=== PATIENT | female | born 1985 | race American Indian/Alaskan Native ===

== ENCOUNTER 2017-03-08 13:22 | Inpatient (IN) | payer MEDICAID ==
[2017-03-08 20:27] LABS: Basophils % (Auto) 0.6 % (0.0-1.8); Eosinophils % (Auto) 0.6 % (0.0-4.3); Hematocrit 44.7 % (30.3-42.9); Hemoglobin 14.9 gm/dl (10.1-14.3); Mean Corpuscular HGB Conc 33 % (30-34); Mean Corpuscular Hemoglobin 29 pg (28-32); Mean Corpuscular Volume 86 fl (79-97); Platelet Count 241 K/mm3 (140-440); Red Cell Distribution Width 13.3 % (13.2-15.2); White Blood Count 4.5 K/mm3 (4.5-11.0)
[2017-03-08 20:43] LABS: INR 1.18 (0.87-1.13)
[2017-03-08 20:47] LABS: Anion Gap 21 mmol/L; BUN/Creatinine Ratio 28; Blood Urea Nitrogen 11 mg/dL (7-17); Calcium 9.4 mg/dL (8.4-10.2); Carbon Dioxide 23 mmol/L (22-30); Chloride 102.2 mmol/L (98-107); Glucose 79 mg/dL (65-100); Potassium 5.1 mmol/L (3.6-5.0); Sodium 141 mmol/L (137-145)
--- NOTE | 2017-03-08 22:00 | Emergency Department Report ---
ED General Adult HPI - General Chief complaint: Tube Replacement Stated complaint: DISLARGED GTUBE Time Seen by Provider: 03/08/17 19:21 Source: EMS, old records reviewed (patient had a 20 [place] bumper gastrostomy tube placed on 06/14/2015. History of hiatal hernia) Mode of arrival: Stretcher Limitations: Other - History of Present Illness Initial comments: 32-year-old female with past medical history of cerebral palsy and seizures presents to the hospital with a broken left upper quadrant feeding tube. Patient is nonverbal and cannot follow basic commands. No other history of present illness obtainable at this time. Patient resides at [facility] and attending is Dr. Prudencio Lomax Severity scale (0 -10): 0 - Related Data Home Medications Medication Instructions Recorded Confirmed Last Taken Acetaminophen [Acetaminophen TAB] 650 mg PO BID 02/04/15 06/03/15 02/03/15 Baclofen [Lioresal] 5 mg PO DAILY 02/04/15 06/03/15 02/03/15 Ferrous Sulfate [Ferrous Sulfate 7.5 ml PO TID 02/04/15 06/03/15 02/03/15 Oral Liq 220 Mg/5 Ml] LORazepam [Ativan INJ] 0.5 mg IM Q6H PRN 02/04/15 06/03/15 02/03/15 Multivit-Minerals/Ferrous Fum 5 ml PO DAILY 02/04/15 06/03/15 02/03/15 [Multivitamin Liquid] QUEtiapine [SEROquel] 25 mg PO QAC 02/04/15 06/03/15 02/03/15 levETIRAcetam [Keppra INJ] 15 ml PO BID 02/04/15 06/03/15 02/03/15 medroxyPROGESTERone ACETATE 150 mg IM Q3M 02/04/15 06/03/15 Unknown [Depo-Provera (Contraception)] Dextromethorphan HBr/Quinidine 1 each PO ACHS 06/03/15 06/03/15 Unknown [Nuedexta 20-10 mg Capsule] Docusate Sodium [Diocto ORAL LIQ] 15 ml PO BID 06/03/15 06/03/15 Unknown Mirtazapine [Remeron] 15 mg PO QHS 06/03/15 06/03/15 Unknown Previous Rx's Medication Instructions Recorded Last Taken Type Phenytoin (25 mg/ml) [Dilantin] 50 mg PO Q8HR #1 bottle 06/16/15 Unknown Rx Allergies Allergy/AdvReac Type Severity Reaction Status Date / Time No Known Allergies Allergy Unverified 02/03/15 14:47 ED Review of Systems ROS: Stated complaint: DISLARGED GTUBE Other details as noted in HPI Comment: Unobtainable due to pts medical conditions ED Past Medical Hx - Past Medical History Previous Medical History?: Yes Hx Hypertension: No Hx Congestive Heart Failure: No Hx Diabetes: No Hx Seizures: Yes Hx Asthma: No Hx COPD: No Hx HIV: No Additional medical history: Cerebral Palsy. Scoliosis - Social History Smoking Status: Never Smoker - Medications Home Medications: Home Medications Medication Instructions Recorded Confirmed Last Taken Type Acetaminophen [Acetaminophen TAB] 650 mg PO BID 02/04/15 06/03/15 02/03/15 History Baclofen [Lioresal] 5 mg PO DAILY 02/04/15 06/03/15 02/03/15 History Ferrous Sulfate [Ferrous Sulfate 7.5 ml PO TID 02/04/15 06/03/15 02/03/15 History Oral Liq 220 Mg/5 Ml] LORazepam [Ativan INJ] 0.5 mg IM Q6H PRN 02/04/15 06/03/15 02/03/15 History Multivit-Minerals/Ferrous Fum 5 ml PO DAILY 02/04/15 06/03/15 02/03/15 History [Multivitamin Liquid] QUEtiapine [SEROquel] 25 mg PO QAC 02/04/15 06/03/15 02/03/15 History levETIRAcetam [Keppra INJ] 15 ml PO BID 02/04/15 06/03/15 02/03/15 History medroxyPROGESTERone ACETATE 150 mg IM Q3M 02/04/15 06/03/15 Unknown History [Depo-Provera (Contraception)] Dextromethorphan HBr/Quinidine 1 each PO ACHS 06/03/15 06/03/15 Unknown History [Nuedexta 20-10 mg Capsule] Docusate Sodium [Diocto ORAL LIQ] 15 ml PO BID 06/03/15 06/03/15 Unknown History Mirtazapine [Remeron] 15 mg PO QHS 06/03/15 06/03/15 Unknown History Phenytoin (25 mg/ml) [Dilantin] 50 mg PO Q8HR #1 bottle 06/16/15 Unknown Rx ED Physical Exam - General Limitations: No Limitations - Other Other exam information: General: No limitations, patient is alert in no acute distress Head exam: Atraumatic, normocephalic Eyes exam: Normal appearance ENT: Moist mucous membrane Neck exam: Normal inspection, Respiratory exam: Clear to auscultation bilateral, no wheezes, rales, crackles Cardiovascular: Normal rate and rhythm, normal heart sounds Abdomen: Soft, nondistended, and nontender, with normal bowel sounds, no rebound, or guarding. Left upper quadrant PEG tube with a bumper that is broken at the bumper level. Gastric content drainage noted Extremity: Full range of motion normal inspection no deformity Back: Normal Inspection, full range of motion, no tenderness Neurologic: Alert, tracks with her eyes, nonverbal, contracted upper lower extremities with some antigravity movement Psychiatric: normal affect, normal mood Skin: Warm, dry, intact ED Course Vital Signs 03/08/17 20:14 Temperature 98 F Pulse Rate 84 Respiratory 18 Rate Blood Pressure 103/76 [Left] - Consultations Consultation #1: 03/08/17 22:19 Case d/w Dr Leyva: npo after midnight, will place peg ED Medical Decision Making - Lab Data Result diagrams: 03/08/17 19:54 03/08/17 19:54 Lab Results 03/08/17 03/08/17 03/08/17 Range/Units 19:54 19:54 19:54 WBC 4.5 (4.5-11.0) K/mm3 RBC 5.20 H (3.65-5.03) M/mm3 Hgb 14.9 H (10.1-14.3) gm/dl Hct 44.7 H (30.3-42.9) % MCV 86 (79-97) fl MCH 29 (28-32) pg MCHC 33 (30-34) % RDW 13.3 (13.2-15.2) % Plt Count 241 (140-440) K/mm3 Lymph % (Auto) 39.9 H (13.4-35.0) % [place] % (Auto) 8.2 H (0.0-7.3) % Eos % (Auto) 0.6 (0.0-4.3) % Baso % (Auto) 0.6 (0.0-1.8) % Lymph # 1.8 (1.2-5.4) K/mm3 [place] # 0.4 (0.0-0.8) K/mm3 Eos # 0.0 (0.0-0.4) K/mm3 Baso # 0.0 (0.0-0.1) K/mm3 Seg Neutrophils % 50.7 (40.0-70.0) % Seg Neutrophils # 2.3 (1.8-7.7) K/mm3 PT 15.6 H (12.2-14.9) Sec. INR 1.18 H (0.87-1.13) APTT 33.0 (24.2-36.6) Sec. Sodium 141 (137-145) mmol/L Potassium 5.1 H (3.6-5.0) mmol/L Chloride 102.2 (98-107) mmol/L Carbon Dioxide 23 (22-30) mmol/L Anion Gap 21 mmol/L BUN 11 (7-17) mg/dL Creatinine 0.4 L (0.7-1.2) mg/dL Estimated GFR > 60 ml/min BUN/Creatinine Ratio 28 % Glucose 79 (65-100) mg/dL Calcium 9.4 (8.4-10.2) mg/dL - Medical Decision Making I am unable to replace PEG tube in the ED and patient will need admission to the hospital for GI replacement of PEG tube. Case discussed with Dr. Leyva prior to admission - Differential Diagnosis dislodged PEG tube, dehydration Critical Care Time: No Critical care attestation.: If time is entered above; I have spent that time in minutes in the direct care of this critically ill patient, excluding procedure time. ED Disposition Clinical Impression: PEG tube malfunction, Encounter for PEG (percutaneous endoscopic gastrostomy) Disposition: OP ADMIT IP TO THIS HOSP Is pt being admited?: Yes Condition: Stable Time of Disposition: 22:00 (Dr Castillo/hosp)
[2017-03-08] MEDS ORDERED: TYLENOL PR PRN (23:29)
[2017-03-08] MEDS ORDERED: ZOFRAN IV PRN (23:29)
--- NOTE | 2017-03-08 23:32 | History and Physical Report ---
History of Present Illness Date of examination: 03/08/17 History of present illness: 32 yeasr with cerebral palsy, seizure, Dm was sent to the ER because her PEG has malfunctioned. She is unable to give a history, ROS unobtainable PAST MEDICAL HISTORY: cerebral palsy, seizure, DM PAST SURGICAL HISTORY: unknown FAMILY HISTORY: unknown SOCIAL HISTORY:unknown Medications and Allergies Allergies Allergy/AdvReac Type Severity Reaction Status Date / Time No Known Allergies Allergy Unverified 02/03/15 14:47 Home Medications Medication Instructions Recorded Confirmed Last Taken Type Acetaminophen [Acetaminophen TAB] 650 mg PO BID 02/04/15 06/03/15 02/03/15 History Baclofen [Lioresal] 5 mg PO DAILY 02/04/15 06/03/15 02/03/15 History Ferrous Sulfate [Ferrous Sulfate 7.5 ml PO TID 02/04/15 06/03/15 02/03/15 History Oral Liq 220 Mg/5 Ml] LORazepam [Ativan INJ] 0.5 mg IM Q6H PRN 02/04/15 06/03/15 02/03/15 History Multivit-Minerals/Ferrous Fum 5 ml PO DAILY 02/04/15 06/03/15 02/03/15 History [Multivitamin Liquid] QUEtiapine [SEROquel] 25 mg PO QAC 02/04/15 06/03/15 02/03/15 History levETIRAcetam [Keppra INJ] 15 ml PO BID 02/04/15 06/03/15 02/03/15 History medroxyPROGESTERone ACETATE 150 mg IM Q3M 02/04/15 06/03/15 Unknown History [Depo-Provera (Contraception)] Dextromethorphan HBr/Quinidine 1 each PO ACHS 06/03/15 06/03/15 Unknown History [Nuedexta 20-10 mg Capsule] Docusate Sodium [Diocto ORAL LIQ] 15 ml PO BID 06/03/15 06/03/15 Unknown History Mirtazapine [Remeron] 15 mg PO QHS 06/03/15 06/03/15 Unknown History Phenytoin (25 mg/ml) [Dilantin] 50 mg PO Q8HR #1 bottle 06/16/15 Unknown Rx Exam - Physical Exam Narrative exam: Gen. appearance: Patient lying in bed, no apparent distress HEENT: Normocephalic, atraumatic, pupils equally round and reactive to light, extraocular movement intact, and no sclericterus,. No JVD or thyromegaly or nodule,neck supple, no carotid bruit ,mucous membranes moist, no exudate or erythema Heart: S1, S2, regular rate and rhythm Lungs: Clear to auscultation bilaterally, breathing comfortable Abdomen: Positive bowel sounds,erythema around PEG site, nontender, nondistended, no organomegaly Extremity: contractred, no cyanosis, clubbing Skin: No rash, nodules, warm, dry Neuro: difficult to assess - Constitutional Vitals: Temp Pulse Resp BP Pulse Ox 98 F 85 20 109/78 03/08/17 22:28 03/08/17 22:28 03/08/17 22:28 03/08/17 22:28 Results - Labs CBC & Chem 7: 03/08/17 19:54 03/08/17 19:54 Labs: Abnormal lab results 03/08/17 03/08/17 03/08/17 Range/Units 19:54 19:54 19:54 RBC 5.20 H (3.65-5.03) M/mm3 Hgb 14.9 H (10.1-14.3) gm/dl Hct 44.7 H (30.3-42.9) % Lymph % (Auto) 39.9 H (13.4-35.0) % [place] % (Auto) 8.2 H (0.0-7.3) % PT 15.6 H (12.2-14.9) Sec. INR 1.18 H (0.87-1.13) Potassium 5.1 H (3.6-5.0) mmol/L Creatinine 0.4 L (0.7-1.2) mg/dL - Imaging and Cardiology EKG: image reviewed Assessment and Plan Assessment Dislodged PEG Cellulitis dehydration Seizure DM Plan Admit to medicine Consult GI, start IV fluid, IV rocephin Check fingersticks, DVT prophalaxis Prn ativan for seizure
[2017-03-08] MEDS ORDERED: NACL 0.45% 1000 ML 1,000 ML IV SCH (23:45)
[2017-03-08] MEDS ORDERED: ROCEPHIN/NS 1 GM/50 ML 1 GM/50 ML BAG IV SCH (23:45)
[2017-03-09] MEDS ORDERED: MORPHINE IV ONE (01:49)
[2017-03-09] MEDS ORDERED: D50W (25GM) Vial IV PRN (02:53)
[2017-03-09] MEDS ORDERED: ATIVAN IV PRN (02:53)
[2017-03-09] MEDS ORDERED: ATIVAN IM PRN (02:54)
[2017-03-09] MEDS: ROCEPHIN 1 GM in NACL 0.9% 20 ML IV SCH ×2 (03:00→14:24)
[2017-03-09 06:43] LABS: Basophils % (Auto) 0.3 % (0.0-1.8); Eosinophils % (Auto) 0.2 % (0.0-4.3); Hemoglobin 14.8 gm/dl (10.1-14.3); Mean Corpuscular HGB Conc 33 % (30-34); Mean Corpuscular Hemoglobin 29 pg (28-32); Mean Corpuscular Volume 87 fl (79-97); Platelet Count 254 K/mm3 (140-440); Red Blood Count 5.19 M/mm3 (3.65-5.03); Red Cell Distribution Width 12.9 % (13.2-15.2); White Blood Count 9.3 K/mm3 (4.5-11.0)
[2017-03-09 06:59] LABS: BUN/Creatinine Ratio 26; Blood Urea Nitrogen 13 mg/dL (7-17); Calcium 9.5 mg/dL (8.4-10.2); Carbon Dioxide 22 mmol/L (22-30); Chloride 100.2 mmol/L (98-107); Glucose 80 mg/dL (65-100); Sodium 142 mmol/L (137-145)
[2017-03-09 07:03] LABS: Anion Gap 25 mmol/L
[2017-03-09] MEDS ORDERED: KEPPRA 1,500 MG in NACL 0.9% 100 ML IV SCH (10:00)
[2017-03-09] MEDS ORDERED: TRANSDERM-SCOP TD SCH (10:00)
--- NOTE | 2017-03-09 11:22 | Gastroenterology Consultation ---
History of Present Illness - Reason for Consult Consult date: 03/09/17 Malfunctioning PEG tube Requesting physician: MEGAN ALVAREZ - History of Present Illness The patient was sent from her facility for a malfunctioning PEG tube. It appears she has a chronic PEG (CP patient) but a new one was placed 06/[address] Lee. It was "not working" at the facility, but on exam, it looks like the PEG has been cut about 4cm proximal to the bumper. There was surrounding erythema, and the patient is in pain when the site is touched. No other information obtainable. Past History Past Medical History: other (Cerebral Palsy) Past Surgical History: Other (PEG tubes) Social history: other (Lives in facility). denies: smoking, alcohol abuse Family history: no significant family history Medications and Allergies Allergies Allergy/AdvReac Type Severity Reaction Status Date / Time No Known Allergies Allergy Unverified 02/03/15 14:47 Home Medications Medication Instructions Recorded Confirmed Last Taken Type Acetaminophen [Acetaminophen TAB] 650 mg PO BID 02/04/15 06/03/15 02/03/15 History Baclofen [Lioresal] 5 mg PO DAILY 02/04/15 06/03/15 02/03/15 History Ferrous Sulfate [Ferrous Sulfate 7.5 ml PO TID 02/04/15 06/03/15 02/03/15 History Oral Liq 220 Mg/5 Ml] LORazepam [Ativan INJ] 0.5 mg IM Q6H PRN 02/04/15 06/03/15 02/03/15 History Multivit-Minerals/Ferrous Fum 5 ml PO DAILY 02/04/15 06/03/15 02/03/15 History [Multivitamin Liquid] QUEtiapine [SEROquel] 25 mg PO QAC 02/04/15 06/03/15 02/03/15 History levETIRAcetam [Keppra INJ] 15 ml PO BID 02/04/15 06/03/15 02/03/15 History medroxyPROGESTERone ACETATE 150 mg IM Q3M 02/04/15 06/03/15 Unknown History [Depo-Provera (Contraception)] Dextromethorphan HBr/Quinidine 1 each PO ACHS 06/03/15 06/03/15 Unknown History [Nuedexta 20-10 mg Capsule] Docusate Sodium [Diocto ORAL LIQ] 15 ml PO BID 06/03/15 06/03/15 Unknown History Mirtazapine [Remeron] 15 mg PO QHS 06/03/15 06/03/15 Unknown History Phenytoin (25 mg/ml) [Dilantin] 50 mg PO Q8HR #1 bottle 06/16/15 Unknown Rx Active Meds: Active Medications Acetaminophen (Tylenol) 650 mg [place] Q4H PRN PRN Reason: Pain MILD(1-3)/Fever >100.5/CMGEE Baclofen (Lioresal) 5 mg PO DAILY SINAN Dextrose (D50w (25gm) Vial) 25 gm IV PRN PRN PRN Reason: Hypoglycemia Sodium Chloride (Nacl 0.45% 1000 Ml) 1,000 mls @ 50 mls/hr IV DIRECT SINAN Last Admin: 03/09/17 03:52 Dose: 50 mls/hr Ceftriaxone Sodium 1 gm/ (Sodium Chloride) 20 mls @ 2 mls/min IV Q24HR SINAN Last Admin: 03/09/17 03:00 Dose: 2 mls/min Levetiracetam (Keppra) 1,500 mg PO BID SINAN Lorazepam (Ativan) 1 mg IV Q4H PRN PRN Reason: Seizures Lorazepam (Ativan) 0.5 mg IM Q6H PRN PRN Reason: Anxiety Mirtazapine (Remeron) 15 mg PO QHS SINAN Ondansetron HCl (Zofran) 4 mg IV Q8H PRN PRN Reason: N/V unrelieved by Reglan Quetiapine Fumarate (Seroquel) 25 mg PO QAC SINAN Scopolamine (Transderm-Scop) 1 each TD Q3D SINAN Review of Systems - Review of Systems ROS unobtainable: due to mental status Exam - Constitutional Vital Signs: Temp Pulse Resp BP Pulse Ox 98.5 F 102 H 16 122/80 98 03/09/17 07:42 03/09/17 07:42 03/09/17 07:42 03/09/17 07:42 03/09/17 07:42 General appearance: mild distress - EENT Eyes: PERRL ENT: poor dentition, no thrush - Neck Neck: supple, normal ROM - Respiratory Respiratory effort: normal Respiratory: bilateral: CTA - Cardiovascular Rhythm: regular Heart Sounds: Present: S1 & S2 Extremities: no ischemia, No edema - Gastrointestinal General gastrointestinal: Present: soft, non-tender, non-distended, other (PEG present in the LUQ that had been cut; it was removed with button intact in one pull. A 16Fr replacement balloon-type PEG was placed in the LUQ and the balloon was insufflated to 5ml. There was good aspiration and flush through the major port.) - Integumentary Integumentary: Present: erythema (Suzanne-PEG erythema to about 25cm around the PEG with wound breakdown and oozing but no severe blood) - Musculoskeletal Musculoskeletal: other (Severe deformity/contractures) - Neurologic Neurological: other (Unable to assess but awake and alert) - Labs CBC & Chem 7: 03/09/17 05:42 03/09/17 05:42 Lab Results: Laboratory Results - last 24 hr 03/08/17 03/08/17 03/08/17 19:54 19:54 19:54 WBC 4.5 RBC 5.20 H Hgb 14.9 H Hct 44.7 H MCV 86 MCH 29 MCHC 33 RDW 13.3 Plt Count 241 Lymph % (Auto) 39.9 H [place] % (Auto) 8.2 H Eos % (Auto) 0.6 Baso % (Auto) 0.6 Lymph # 1.8 [place] # 0.4 Eos # 0.0 Baso # 0.0 Seg Neutrophils % 50.7 Seg Neutrophils # 2.3 PT 15.6 H INR 1.18 H APTT 33.0 Sodium 141 Potassium 5.1 H Chloride 102.2 Carbon Dioxide 23 Anion Gap 21 BUN 11 Creatinine 0.4 L Estimated GFR > 60 BUN/Creatinine Ratio 28 Glucose 79 Calcium 9.4 03/09/17 03/09/17 05:42 05:42 WBC 9.3 RBC 5.19 H Hgb 14.8 H Hct 45.0 H MCV 87 MCH 29 MCHC 33 RDW 12.9 L Plt Count 254 Lymph % (Auto) 22.7 [place] % (Auto) 7.3 Eos % (Auto) 0.2 Baso % (Auto) 0.3 Lymph # 2.1 [place] # 0.7 Eos # 0.0 Baso # 0.0 Seg Neutrophils % 69.5 Seg Neutrophils # 6.5 PT INR APTT Sodium 142 Potassium 5.0 Chloride 100.2 Carbon Dioxide 22 Anion Gap 25 BUN 13 Creatinine 0.5 L Estimated GFR > 60 BUN/Creatinine Ratio 26 Glucose 80 Calcium 9.5 Assessment and Plan - Patient Problems (1) Cellulitis Current Visit: Yes Status: Acute Plan to address problem: - Patient afebrile with normal WBC and no fevers; likely superficial cellulitis. - Will get CT scan of abdomen to r/o submucosal abscess given abdominal pain and nonverbal patient. - Wound consult. - Keep skin dry. - Antibiotics of choice per IMS. (2) PEG tube malfunction Current Visit: Yes Status: Acute Plan to address problem: - PEG tube replaced today. - OK to use immediately if CT scan shows no large abscess (see above).
[2017-03-09] MEDS ORDERED: SODIUM BICARBONATE FEEDTUBE PRN (12:08)
[2017-03-09] MEDS ORDERED: PANCREAZE DR 10,500 UNIT FEEDTUBE PRN (12:08)
[2017-03-09] MEDS ORDERED: SIMPLE SYRUP FEEDTUBE PRN ×2 (12:08)
--- NOTE | 2017-03-09 12:27 | XRay Report ---
SUPINE KUB: History: Confirmation of tube placement. A tube overlies the left upper quadrant. It is unclear if this represents a PEG tube or other tube. Please correlate with the patient. The abdominal gas pattern is unremarkable. No masses or organomegaly is identified and there is no gross evidence of free air or fluid. No significant soft tissue calcifications are noted. IMPRESSION: No acute abdominal process.
--- NOTE | 2017-03-09 13:05 | Consultation ---
History of Present Illness - Reason for Consult Consult date: 03/09/17 abdominal wall cellulitis / abscess Requesting physician: MEGAN CRISTINA - History of Present Illness 32 years old female with history of cerebral palsy, diabetes and seizure, admitted on 03/08/17 due to PEG not working per NS report. It appears she has a chronic PEG but a new one was placed 06/[address] Lee. On exam, it looks like the PEG has been cut about 4cm proximal to the bumper per GI med. There was surrounding erythema, and the patient is in pain when the site is touched. In the emergency room, and pressure 98, heart rate 99, blood pressure 109/78. Abd x-ray negative. WBC 4.5. Plat 241. Creat 0.4. Microbiology: none Current Antimicrobials: dicloxacillin ceftraixone Previous Antimicrobials: Past History Past Medical History: other (Cerebral Palsy) Past Surgical History: Other (PEG tubes) Social history: other (Lives in facility). denies: smoking, alcohol abuse Family history: no significant family history Medications and Allergies Allergies Allergy/AdvReac Type Severity Reaction Status Date / Time No Known Allergies Allergy Unverified 02/03/15 14:47 Home Medications Medication Instructions Recorded Confirmed Last Taken Type Acetaminophen [Acetaminophen TAB] 650 mg PO BID 02/04/15 06/03/15 02/03/15 History Baclofen [Lioresal] 5 mg PO DAILY 02/04/15 06/03/15 02/03/15 History Ferrous Sulfate [Ferrous Sulfate 7.5 ml PO TID 02/04/15 06/03/15 02/03/15 History Oral Liq 220 Mg/5 Ml] LORazepam [Ativan INJ] 0.5 mg IM Q6H PRN 02/04/15 06/03/15 02/03/15 History Multivit-Minerals/Ferrous Fum 5 ml PO DAILY 02/04/15 06/03/15 02/03/15 History [Multivitamin Liquid] QUEtiapine [SEROquel] 25 mg PO QAC 02/04/15 06/03/15 02/03/15 History levETIRAcetam [Keppra INJ] 15 ml PO BID 02/04/15 06/03/15 02/03/15 History medroxyPROGESTERone ACETATE 150 mg IM Q3M 02/04/15 06/03/15 Unknown History [Depo-Provera (Contraception)] Dextromethorphan HBr/Quinidine 1 each PO ACHS 06/03/15 06/03/15 Unknown History [Nuedexta 20-10 mg Capsule] Docusate Sodium [Diocto ORAL LIQ] 15 ml PO BID 06/03/15 06/03/15 Unknown History Mirtazapine [Remeron] 15 mg PO QHS 06/03/15 06/03/15 Unknown History Phenytoin (25 mg/ml) [Dilantin] 50 mg PO Q8HR #1 bottle 06/16/15 Unknown Rx Active Meds: Active Medications Acetaminophen (Tylenol) 650 mg [place] Q4H PRN PRN Reason: Pain MILD(1-3)/Fever >100.5/MCGEE Lipase/Protease/Amylase (Pancreaze Dr 10,500 Unit) 1 each FEEDTUBE PRN PRN PRN Reason: For Clogged Feeding Tube Baclofen (Lioresal) 5 mg PO DAILY SINAN Dextrose (D50w (25gm) Vial) 25 gm IV PRN PRN PRN Reason: Hypoglycemia Dicloxacillin Sodium (Dynapen) 500 mg PO Q6HR SINAN Sodium Chloride (Nacl 0.45% 1000 Ml) 1,000 mls @ 50 mls/hr IV DIRECT SINAN Last Admin: 03/09/17 03:52 Dose: 50 mls/hr Ceftriaxone Sodium 1 gm/ (Sodium Chloride) 20 mls @ 2 mls/min IV Q24HR@2200 SINAN Levetiracetam (Keppra) 1,500 mg PO BID SINAN Lorazepam (Ativan) 1 mg IV Q4H PRN PRN Reason: Seizures Lorazepam (Ativan) 0.5 mg IM Q6H PRN PRN Reason: Anxiety Mirtazapine (Remeron) 15 mg PO QHS SINAN Ondansetron HCl (Zofran) 4 mg IV Q8H PRN PRN Reason: N/V unrelieved by Reglan Quetiapine Fumarate (Seroquel) 25 mg PO QAC SINAN Scopolamine (Transderm-Scop) 1 each TD Q3D SINAN Simple Syrup (Simple Syrup) 15 ml FEEDTUBE PRN PRN PRN Reason: Hypoglycemia Simple Syrup (Simple Syrup) 30 ml FEEDTUBE PRN PRN PRN Reason: Hypoglycemia Sodium Bicarbonate (Sodium Bicarbonate) 325 mg FEEDTUBE PRN PRN PRN Reason: For Clogged Feeding Tube Review of Systems ROS unobtainable: due to mental status Physical Examination - Physical Exam Narrative exam: General appearance: Alert in NAD, non verbal Eyes: anicteric sclerae, moist conjunctivae; no lid-lag; PERRLA HENT: Atraumatic; oropharynx clear Neck: Trachea midline; supple, no thyromegaly or lymphadenopathy Lungs: CTA CV: RRR Abdomen: Soft, +PEG site with surrounding erythema, edema and skin sloughing Extremities: contracted legs Skin: Normal temperature, turgor and texture; no rash, ulcers or subcutaneous nodules Psych: non verbal Neuro: non verbal alert contracted legs Lines: No CVL / PICC - Constitutional Vitals: Vital Signs Temp Pulse Resp BP Pulse Ox 98.5 F 102 H 16 122/80 98 03/09/17 07:42 03/09/17 07:42 03/09/17 07:42 03/09/17 07:42 03/09/17 07:42 Temperature -Last 24 Hours Temperature 98.5 F Temperature 98.7 F Temperature 98 F Temperature 98 F Results - Labs CBC & Chem 7: 03/09/17 05:42 03/09/17 05:42 Labs: Abnormal lab results 03/08/17 03/08/17 03/08/17 Range/Units 19:54 19:54 19:54 RBC 5.20 H (3.65-5.03) M/mm3 Hgb 14.9 H (10.1-14.3) gm/dl Hct 44.7 H (30.3-42.9) % RDW (13.2-15.2) % Lymph % (Auto) 39.9 H (13.4-35.0) % [place] % (Auto) 8.2 H (0.0-7.3) % PT 15.6 H (12.2-14.9) Sec. INR 1.18 H (0.87-1.13) Potassium 5.1 H (3.6-5.0) mmol/L Creatinine 0.4 L (0.7-1.2) mg/dL 03/09/17 03/09/17 Range/Units 05:42 05:42 RBC 5.19 H (3.65-5.03) M/mm3 Hgb 14.8 H (10.1-14.3) gm/dl Hct 45.0 H (30.3-42.9) % RDW 12.9 L (13.2-15.2) % Lymph % (Auto) (13.4-35.0) % [place] % (Auto) (0.0-7.3) % PT (12.2-14.9) Sec. INR (0.87-1.13) Potassium (3.6-5.0) mmol/L Creatinine 0.5 L (0.7-1.2) mg/dL Assessment and Plan Assessment: 1) PEG site cellulitis / presumed abscess: 2) Cerebral palsy 3) DM Plan: -stop dicloxacillin / ceftriaxone -start zosyn and vanco -agree with abdominal CT -CRP Thank you Dr Cristina for your consultation, will follow up with you. Rosemary Daniel MD Infectious Diseases Specialist [facility] ([facility] M [phone] O [phone]
--- NOTE | 2017-03-09 13:57 | Progress Note ---
Assessment and Plan Assessment and plan: The patient is 32 year old female with medical history of cerebral palsy and seizures was sent from her facility for a malfunctioning PEG tube. It appears she has a chronic PEG (CP patient) but a new one was placed 06/[address] Lee. It was "not working" at the facility, but on exam, it looks like the PEG has been cut about 4cm proximal to the bumper per GI eval. There was surrounding erythema, and the patient is in pain when the site is touched. No other information obtainable. Attending is Dr. Prudencio Lomax PEG site cellulites / presumed abscess * Appreciate GI replacing tube, KUB unremarkable * ID consult, Zosyn and Vanco started * Await CT contrast. Consent done by two doctors per guardians request Peritoneal Irritation * Pain control * Wound care consult Secretion management * Scopolamine Cerebral palsy * Current therapy DM * Insulin sliding scale Seizure * Continue home meds Abdominal Wound- Present on admission * Wound care consult Hypokalemia * Improved DVT/GI PROPHY Care discussed on ID and GI History Interval history: Patient seen and examined, in no acute distress. Patient is non verbal secondary to Cerebral Palsy, appears in distress with any manipulation of the abdomen. Hospitalist Physical - Physical exam Narrative exam: VITAL SIGNS: Reviewed. GENERAL: The patient appeared contracted, mild distress especially with abdomen manipulation. Vital signs as documented. HEAD: No signs of head trauma. EYES: Pupils are equal. Extraocular motions intact. EARS: Hearing grossly intact. MOUTH: Oropharynx is normal. NECK: No adenopathy, no JVD. CHEST: Chest with clear breath sounds bilaterally. No wheezes, rales, or rhonchi. CARDIAC: Regular rate and rhythm. S1 and S2, without murmurs, gallops, or rubs. VASCULAR: No Edema. Peripheral pulses normal and equal in all extremities. ABDOMEN: Peg tube in place with wound and some skin breakdown. Soft, Tender. No sign of distention. No rebound or guarding, and no masses palpated. Bowel Sounds Hypoactive MUSCULOSKELETAL: Severe deformity and Contracted Extremities. NEUROLOGIC EXAM: Awake but non verbal. PSYCHIATRIC: Mood normal. SKIN: Erythema in the abdomen - Constitutional Vitals: Temp Pulse Resp BP Pulse Ox 98.5 F 102 H 16 122/80 98 03/09/17 07:42 03/09/17 07:42 03/09/17 07:42 03/09/17 07:42 03/09/17 07:42 Results - Labs CBC & Chem 7: 03/09/17 05:42 03/09/17 05:42 Labs: Laboratory Last Values WBC 9.3 K/mm3 (4.5-11.0) 03/09/17 05:42 RBC 5.19 M/mm3 (3.65-5.03) H 03/09/17 05:42 Hgb 14.8 gm/dl (10.1-14.3) H 03/09/17 05:42 Hct 45.0 % (30.3-42.9) H 03/09/17 05:42 MCV 87 fl (79-97) 03/09/17 05:42 MCH 29 pg (28-32) 03/09/17 05:42 MCHC 33 % (30-34) 03/09/17 05:42 RDW 12.9 % (13.2-15.2) L 03/09/17 05:42 Plt Count 254 K/mm3 (140-440) 03/09/17 05:42 Lymph % (Auto) 22.7 % (13.4-35.0) 03/09/17 05:42 [place] % (Auto) 7.3 % (0.0-7.3) 03/09/17 05:42 Eos % (Auto) 0.2 % (0.0-4.3) 03/09/17 05:42 Baso % (Auto) 0.3 % (0.0-1.8) 03/09/17 05:42 Lymph # 2.1 K/mm3 (1.2-5.4) 03/09/17 05:42 [place] # 0.7 K/mm3 (0.0-0.8) 03/09/17 05:42 Eos # 0.0 K/mm3 (0.0-0.4) 03/09/17 05:42 Baso # 0.0 K/mm3 (0.0-0.1) 03/09/17 05:42 Seg Neutrophils % 69.5 % (40.0-70.0) 03/09/17 05:42 Seg Neutrophils # 6.5 K/mm3 (1.8-7.7) 03/09/17 05:42 PT 15.6 Sec. (12.2-14.9) H 03/08/17 19:54 INR 1.18 (0.87-1.13) H 03/08/17 19:54 APTT 33.0 Sec. (24.2-36.6) 03/08/17 19:54 Sodium 142 mmol/L (137-145) 03/09/17 05:42 Potassium 5.0 mmol/L (3.6-5.0) 03/09/17 05:42 Chloride 100.2 mmol/L (98-107) 03/09/17 05:42 Carbon Dioxide 22 mmol/L (22-30) 03/09/17 05:42 Anion Gap 25 mmol/L 03/09/17 05:42 BUN 13 mg/dL (7-17) 03/09/17 05:42 Creatinine 0.5 mg/dL (0.7-1.2) L 03/09/17 05:42 Estimated GFR > 60 ml/min 03/09/17 05:42 BUN/Creatinine Ratio 26 % 03/09/17 05:42 Glucose 80 mg/dL (65-100) 03/09/17 05:42 Calcium 9.5 mg/dL (8.4-10.2) 03/09/17 05:42 - Imaging and Cardiology CT scan - abdomen: pending CT scan - pelvis: pending
[2017-03-09] MEDS ORDERED: VANCOMYCIN PHARMACY TO DOSE IV SCH (14:00)
[2017-03-09] MEDS: KEPPRA PO SCH ×2 (15:01→23:23)
[2017-03-09] MEDS: LIORESAL PO SCH (15:01)
[2017-03-09] MEDS ORDERED: VANCOMYCIN VIAL 1,000 MG in NACL 0.9% 100 ML IV SCH (16:00)
[2017-03-09] MEDS: ZOSYN/NS 4.5GM/100ML 4.5 GM/100 ML VIAL IV SCH ×2 (16:04→23:25)
--- NOTE | 2017-03-09 16:22 | Cat Scan Report ---
FINAL REPORT PROCEDURE: CT ABDOMEN PELVIS W CON TECHNIQUE: Computerized axial tomography of the abdomen and pelvis was performed after the IV injection of iodinated nonionic contrast. HISTORY: ABDOMINAL WALL ABSCESS COMPARISON: Abdomen x-ray dated June 07, 2015 FINDINGS: Mild hypoventilatory changes are seen in the lungs. Streak artifact from patient's arm slightly limits evaluation of the upper abdomen. Normal variant diminished enhancement is seen in the bare area of the liver. Spleen is normal in size with an accessory splenule inferiorly. Gastrostomy tube has its tip in the body of the stomach. Gallbladder and pancreas display no abnormalities. Adrenal glands and abdominal aorta are normal in size. Two small cysts are seen in the superior pole of the left kidney, measuring up to 8 millimeters in greatest dimension. 6 millimeter cyst is seen in the mid right kidney. Bladder is partially distended without wall thickening. It is displaced anteriorly and to the right of midline due to distended rectosigmoid colon. Rectosigmoid colon is dilated to 8.3 cm in diameter with soft fecal material. More mild constipation is seen throughout the remainder of the colon. No fecal impaction is seen. Likely normal appendix is seen. Uterus is displaced to the right of midline due to the distended rectosigmoid colon. Probable 1.5 cm left ovarian cyst is seen. 2.2 cm right ovarian cyst is seen. Moderate arthritic changes are seen in the hips. IMPRESSION: Prominent constipation is seen in the rectosigmoid colon, with more mild constipation throughout the remainder of the colon. Small bilateral ovarian cysts are seen. Benign renal cysts are seen.
[2017-03-09] MEDS ORDERED: REMERON PO SCH (22:00)
[2017-03-09] MEDS ORDERED: ROCEPHIN 1 GM in NACL 0.9% 20 ML IV SCH (22:00)
[2017-03-10] MEDS ORDERED: VANCOMYCIN/NS 1 GM/250 ML 1 GM/250 ML BAG IV SCH (04:00)
[2017-03-10] MEDS: ZOSYN/NS 4.5GM/100ML 4.5 GM/100 ML VIAL IV SCH (06:06)
[2017-03-10 07:49] VITALS: BP 96/40
[2017-03-10] MEDS: LIORESAL PO SCH (09:37)
[2017-03-10] MEDS: KEPPRA PO SCH (09:38)
[2017-03-10] MEDS ORDERED: NACL 0.9% 1000 ML 1,000 ML IV ONE (10:48)
--- NOTE | 2017-03-10 10:55 | Discharge Summary ---
Providers - Providers Date of Admission: 03/08/17 23:29 Attending physician: MEGAN ALVAREZ MD 03/08/17 22:15 Consult to Physician [CONS] Urgent Consulting Provider: YAJAIRA OSCAR Reason For Exam: peg placement Place consult to:: Dr. Oscar Notified:: Answering Service Phone number called:: [phone] Was contact made?: Yes If yes, spoke with:: Dr. Oscar Time called:: 22:14 Comment:: Dr. Jean ( dr) spoke with Dr. Oscar 03/09/17 09:35 Consult to Physician [CONS] Routine Consulting Provider: LIZ BRADFORD Reason For Exam: abdominal wall abscess Place consult to:: dr. rodriguez Notified:: Phone number called:: [phone] Was contact made?: Yes If yes, spoke with:: dr. rodriguez Time called:: 10:17 03/09/17 11:31 Consult to Wound/ET Nurse [CONS] Routine Reason For Exam: wound eval 03/09/17 11:32 Consult to Dietitian/Nutrition [CONS] Routine Physician Instructions: Reason For Exam: Reason for Consult: Write/Manage Tube Feeding Primary care physician: DIOMEDES MARQUEZ Hospitalization Reason for admission: PEG TUBE MALFORMATION Condition: Stable Hospital course: The patient is 32 year old female with medical history of cerebral palsy and seizures was sent from her facility for a malfunctioning PEG tube. It appears she has a chronic PEG (CP patient) but a new one was placed 06/[address] Lee. It was "not working" at the facility, but on exam, it looks like the PEG has been cut about 4cm proximal to the bumper per GI eval. There was surrounding erythema,with surface excoriations concerning for cellulitis with possible abdominal abscess and the patient is in pain when the site is touched. No other information obtainable. Attending is Dr. Diomedes Marquez. Patient was seen by GI and peg tube replaced and checked for placement. CT scan of adomen was obtained to r/o abscess and was negative but showed constipation which was treated. The patients feeding was restarted. she was also seen by ID and started on abx until abscess was ruled out then transitioned to PO on discharge. PEG site Malfunction Peritoneal Irritation Abdominal wall soft tissue cellulitis Cerebral palsy DM with hyperglycemia Seizure Severe Constipation Abdominal WALL Wound- Present on admission Hypokalemia Hypotension Disposition: DC/TX-03 [facility] Time spent for discharge: 35 MINS Core Measure Documentation - Palliative Care Palliative Care/ Comfort Measures: Not Applicable - Core Measures Any of the following diagnoses?: none - VTE Discharge Requirements Deep Vein Thrombosis/Pulmonary Embolism Present on Admission: No Exam - Physical Exam Narrative exam: VITAL SIGNS: Reviewed. GENERAL: The patient appeared contracted, mild distress especially with abdomen manipulation. Vital signs as documented. HEAD: No signs of head trauma. EYES: Pupils are equal. Extraocular motions intact. EARS: Hearing grossly intact. MOUTH: Oropharynx is normal. NECK: No adenopathy, no JVD. CHEST: Chest with clear breath sounds bilaterally. No wheezes, rales, or rhonchi. CARDIAC: Regular rate and rhythm. S1 and S2, without murmurs, gallops, or rubs. VASCULAR: No Edema. Peripheral pulses normal and equal in all extremities. ABDOMEN: Peg tube in place with wound and some skin breakdown. Soft, Tender. No sign of distention. No rebound or guarding, and no masses palpated. Bowel Sounds Hypoactive MUSCULOSKELETAL: Severe deformity and Contracted Extremities. NEUROLOGIC EXAM: Awake but non verbal. PSYCHIATRIC: Mood normal. SKIN: Erythema in the abdomen - Constitutional Vitals: Temp Pulse Resp BP Pulse Ox 98.6 F 75 18 96/40 94 03/10/17 07:45 03/10/17 07:45 03/10/17 07:45 03/10/17 07:45 03/10/17 07:45 Plan Activity: advance as tolerated, fall precautions Diet: per dietitian instruction Wound: per wound nurse instructions Follow up with: DIOMEDES MARQUEZ MD [Primary Care Provider] - 3-5 Days Prescriptions: Clindamycin [Clindamycin CAP] 300 mg PO Q8H 7 Days cap
--- NOTE | 2017-03-10 11:59 | Progress Note ---
Assessment and Plan Assessment: 1) PEG site cellulitis: no abscess seen on CT. CRP=0.1 2) Cerebral palsy 3) DM 4) Constipation Plan: -contine zosyn and vanco -upon discharge will do clindamycin 300 mg po tid x 7 days -treat constipation -wound care Thank you Dr Cristina for your consultation, will follow up with you. Rosemary Daniel MD Infectious Diseases Specialist [facility] ([facility]) M [phone] O [phone] Subjective Date of service: 03/10/17 Principal diagnosis: cellulitis Interval history: Remains non verbal, alert, no fever. Microbiology: none Current Antimicrobials: vanco 03/09 zosyn 03/09 Previous Antimicrobials: dicloxacillin ceftraixone Objective - Exam Narrative Exam: General appearance: Alert in NAD, non verbal Eyes: anicteric sclerae, moist conjunctivae; no lid-lag; PERRLA HENT: Atraumatic; oropharynx clear Neck: Trachea midline; supple, no thyromegaly or lymphadenopathy Lungs: CTA CV: RRR Abdomen: Soft, +PEG site with surrounding erythema, edema and skin sloughing - better Extremities: contracted legs Skin: Normal temperature, turgor and texture; no rash, ulcers or subcutaneous nodules Psych: non verbal Neuro: non verbal alert contracted legs Lines: No CVL / PICC - Constitutional Vitals: Vital Signs Temp Pulse Resp BP Pulse Ox 98.6 F 75 18 96/40 94 03/10/17 07:45 03/10/17 07:45 03/10/17 07:45 03/10/17 07:45 03/10/17 07:45 Temperature -Last 24 Hours Temperature 98.6 F Temperature 98.9 F Temperature 98.5 F - Labs CBC & Chem 7: 03/09/17 05:42 03/09/17 05:42
[2017-03-10 12:20] LABS: Hematocrit 39.8 % (30.3-42.9); Mean Corpuscular HGB Conc 33 % (30-34); Mean Corpuscular Hemoglobin 29 pg (28-32); Mean Corpuscular Volume 89 fl (79-97); Platelet Count 185 K/mm3 (140-440); Red Cell Distribution Width 13.4 % (13.2-15.2); White Blood Count 4.8 K/mm3 (4.5-11.0)
[2017-03-10 12:28] LABS: Anion Gap 21 mmol/L; BUN/Creatinine Ratio 16; Blood Urea Nitrogen 11 mg/dL (7-17); Calcium 8.6 mg/dL (8.4-10.2); Carbon Dioxide 20 mmol/L (22-30); Glucose 75 mg/dL (65-100); Potassium 3.8 mmol/L (3.6-5.0); Sodium 143 mmol/L (137-145)
[2017-03-10] MEDS: ROCEPHIN 1 GM in NACL 0.9% 20 ML IV SCH (13:09)
[2017-03-10] MEDS ORDERED: DYNAPEN PO SCH (18:00)
== END 2017-03-10 13:45 | DRG 393 ==
LOC: ED 13:22 → 3A 23:29
PROVIDERS: ADMIT Internal Medicine; ATTEND Internal Medicine
PROC: 0D20XUZ Change Feeding Device in Upper Intestinal Tract, External Approach (ICD-10-PCS; principal; 2017-03-09)
DX: K94.23 Gastrostomy malfunction (principal); K65.9 Peritonitis, unspecified; E86.0 Dehydration; R56.9 Unspecified convulsions; G80.9 Cerebral palsy, unspecified; K59.00 Constipation, unspecified; E11.65 Type 2 diabetes mellitus with hyperglycemia; I95.9 Hypotension, unspecified; E87.6 Hypokalemia; L03.311 Cellulitis of abdominal wall; K94.22 Gastrostomy infection; Y83.3 Surgical operation with formation of external stoma as the cause of abnormal reaction of the patient, or of later complication, without mention of misadventure at the time of the procedure; Y73.8 Miscellaneous gastroenterology and urology devices associated with adverse incidents, not elsewhere classified; Y92.099 Unspecified place in other non-institutional residence as the place of occurrence of the external cause
CPT/HCPCS: 36415; 74000; 74177; 80048; 82962; 85025; 85027; 85610; 85730; 86140; J0696; J1953; J2270; J2543; J3370; J7030; Q9967

== ENCOUNTER 2017-10-02 03:38 | Emergency (ER) | payer MEDICAID ==
--- NOTE | 2017-10-02 06:12 | Emergency Department Report ---
ED Abdominal Pain HPI - General Chief Complaint: Tube Replacement Stated Complaint: GTUBE REPLACEMENT Time Seen by Provider: 10/02/17 04:20 Source: EMS Mode of arrival: Stretcher Limitations: Language Barrier, Physical Limitation - History of Present Illness Initial Comments: Ms Duenas is a 22 year-old woman with hx of CP, pseudobulbar affect and g-tube dependence who presents with g-tube removal. Noticed about 45 minutes prior to her arrival at the [facility]. Has 18-f g-tube in place. Placed years ago. No other reported issues. MD Complaint: abdominal pain Severity scale (0 -10): 0 - Related Data Home Medications Medication Instructions Recorded Confirmed Last Taken Acetaminophen [Acetaminophen TAB] 650 mg PO BID 02/04/15 06/03/15 02/03/15 Baclofen [Lioresal] 5 mg PO DAILY 02/04/15 06/03/15 02/03/15 Ferrous Sulfate [Ferrous Sulfate 7.5 ml PO TID 02/04/15 06/03/15 02/03/15 Oral Liq 220 Mg/5 Ml] LORazepam [Ativan INJ] 0.5 mg IM Q6H PRN 02/04/15 06/03/15 02/03/15 Multivit-Minerals/Ferrous Fum 5 ml PO DAILY 02/04/15 06/03/15 02/03/15 [Multivitamin Liquid] QUEtiapine [SEROquel] 25 mg PO QAC 02/04/15 06/03/15 02/03/15 levETIRAcetam [Keppra INJ] 15 ml PO BID 02/04/15 06/03/15 02/03/15 medroxyPROGESTERone ACETATE 150 mg IM Q3M 02/04/15 06/03/15 Unknown [Depo-Provera (Contraception)] Dextromethorphan HBr/Quinidine 1 each PO ACHS 06/03/15 06/03/15 Unknown [Nuedexta 20-10 mg Capsule] Docusate Sodium [Diocto ORAL LIQ] 15 ml PO BID 06/03/15 06/03/15 Unknown Mirtazapine [Remeron] 15 mg PO QHS 06/03/15 06/03/15 Unknown Previous Rx's Medication Instructions Recorded Last Taken Type Phenytoin (25 mg/ml) [Dilantin] 50 mg PO Q8HR #1 bottle 06/16/15 Unknown Rx Clindamycin [Clindamycin CAP] 300 mg PO Q8H 7 Days cap 03/10/17 Unknown Rx Allergies Allergy/AdvReac Type Severity Reaction Status Date / Time No Known Allergies Allergy Unverified 02/03/15 14:47 ED Review of Systems ROS: Stated complaint: GTUBE REPLACEMENT Other details as noted in HPI Comment: Unobtainable due to pts medical conditions ED Past Medical Hx - Past Medical History Previous Medical History?: Yes Hx Hypertension: No Hx Congestive Heart Failure: No Hx Diabetes: No Hx Seizures: Yes Hx Psychiatric Treatment: Yes (Depressive Disorder, Mood Disorder) Hx Asthma: No Hx COPD: No Hx HIV: No Additional medical history: Cerebral Palsy, Dysphagia, Pseudobulbar Affect, Abnormal Posture, Gastrostomy. Scoliosis - Social History Smoking Status: Unknown if ever smoked - Medications Home Medications: Home Medications Medication Instructions Recorded Confirmed Last Taken Type Acetaminophen [Acetaminophen TAB] 650 mg PO BID 02/04/15 06/03/15 02/03/15 History Baclofen [Lioresal] 5 mg PO DAILY 02/04/15 06/03/15 02/03/15 History Ferrous Sulfate [Ferrous Sulfate 7.5 ml PO TID 02/04/15 06/03/15 02/03/15 History Oral Liq 220 Mg/5 Ml] LORazepam [Ativan INJ] 0.5 mg IM Q6H PRN 02/04/15 06/03/15 02/03/15 History Multivit-Minerals/Ferrous Fum 5 ml PO DAILY 02/04/15 06/03/15 02/03/15 History [Multivitamin Liquid] QUEtiapine [SEROquel] 25 mg PO QAC 02/04/15 06/03/15 02/03/15 History levETIRAcetam [Keppra INJ] 15 ml PO BID 02/04/15 06/03/15 02/03/15 History medroxyPROGESTERone ACETATE 150 mg IM Q3M 02/04/15 06/03/15 Unknown History [Depo-Provera (Contraception)] Dextromethorphan HBr/Quinidine 1 each PO ACHS 06/03/15 06/03/15 Unknown History [Nuedexta 20-10 mg Capsule] Docusate Sodium [Diocto ORAL LIQ] 15 ml PO BID 06/03/15 06/03/15 Unknown History Mirtazapine [Remeron] 15 mg PO QHS 06/03/15 06/03/15 Unknown History Phenytoin (25 mg/ml) [Dilantin] 50 mg PO Q8HR #1 bottle 06/16/15 Unknown Rx Clindamycin [Clindamycin CAP] 300 mg PO Q8H 7 Days cap 03/10/17 Unknown Rx ED Physical Exam - General Limitations: Language Barrier, Physical Limitation General appearance: in no apparent distress, other (contracted, non-verbal) - Head Head exam: Present: atraumatic, normocephalic - Eye Eye exam: Present: normal appearance. Absent: conjunctival injection, periorbital swelling - ENT ENT exam: Present: normal exam, normal orophraynx, mucous membranes moist - Neck Neck exam: Present: normal inspection. Absent: tenderness - Respiratory Respiratory exam: Present: normal lung sounds bilaterally. Absent: respiratory distress - Cardiovascular Cardiovascular Exam: Present: regular rate, normal rhythm - GI/Abdominal GI/Abdominal exam: Present: soft, other (g-tube site in RUQ slightly swollen, no surrounding erythema). Absent: distended, tenderness, guarding, rebound - Neurological Exam Neurological exam: Present: alert, other (moves all 4 extremities) - Skin Skin exam: Present: warm, dry, intact ED Course Vital Signs 10/02/17 10/02/17 10/02/17 04:01 05:00 05:39 Temperature 97.8 F Pulse Rate 89 88 Respiratory 20 20 20 Rate Blood Pressure 107/79 Blood Pressure 108/79 [Right] O2 Sat by Pulse 99 98 98 Oximetry 10/02/17 08:00 Temperature 98.6 F Pulse Rate 88 Respiratory 18 Rate Blood Pressure Blood Pressure 119/85 [Right] O2 Sat by Pulse 98 Oximetry - Feeding Tube Replacement Reason for Replacement: fell out Initial Tube Inserted: greater than 4 weeks Type of Tube: gastrostomy Use of Tube: medications and feeding Insertion Site Prior to Procedure: clean, swollen Tube Used for Reinsertion: YONI Verification of Placement: KUB, gastrograffin injection, other (aspiration of stomach contents) Tube Secured by: other (balloon inflated ) ED Medical Decision Making - Radiology Data Radiology results: report reviewed - Medical Decision Making Ms Duenas is a 32 year-old woman with hx of CP and g-tube dependence who presents with g-tube removal. Replaced with smaller tube due to g-tube site swelilng. minimal bleeding with re-insertion. Awaiting confirmation with g-tube study. once confirmed in place, dc back to [facility]. Critical care attestation.: If time is entered above; I have spent that time in minutes in the direct care of this critically ill patient, excluding procedure time. ED Disposition Clinical Impression: Attention to G-tube Disposition: DC-01 TO HOME OR SELFCARE Is pt being admited?: No Condition: Stable Instructions: How to Use and Care for Your PEG Tube (ED) Referrals: PRIMARY CARE, [Primary Care Provider] - 3-5 Days
--- NOTE | 2017-10-02 07:44 | XRay Report ---
FINAL REPORT EXAM: XR G-TUBE STUDY HISTORY: g-tube replacement COMPARISONS: 03/09/2017 FINDINGS: AP portable radiographs of the abdomen Speaker Mounter image of the abdomen demonstrates a central abdominal percutaneous enteric tube, which is subsequently filled with contrast that outlines gastric rugal folds and the duodenum and jejunum. No extravasation of positive enteric contrast is demonstrated. IMPRESSION: Percutaneous gastrostomy tube intraluminal location is confirmed.
[2017-10-02 08:18] VITALS: BP 119/85
== END 2017-10-02 14:30 | disposition home or self-care (01) ==
LOC: ED 03:38
DX: Z43.1 Encounter for attention to gastrostomy (principal)
CPT/HCPCS: 43760; 74018; 99283; Q9963

== ENCOUNTER 2020-02-23 01:47 | Emergency (ER) | payer MEDICAID ==
[2020-02-23] MEDS ORDERED: levETIRAcetam 1000 MG/NS 0.75% 1,000 MG/100 ML BAG IV ONE (01:55)
--- NOTE | 2020-02-23 02:37 | Cat Scan Report ---
CT HEAD WITHOUT CONTRAST INDICATION: continuous seizure. TECHNIQUE: All CT scans at this location are performed using CT dose reduction for ALARA by means of automated e xposure control. COMPARISON: 09/18/2019 FINDINGS: HEMORRHAGE: None. EXTRA-AXIAL SPACES: Normal in size and morphology for the patient's age. VENTRICULAR SYSTEM: Normal in size and morphology for the patient's age. BRAIN PARENCHYMA: No acute findings. Cerebellar atrophy is again noted. MIDLINE SHIFT OR HERNIATION: None. ORBITS: Normal as visualized. SOFT TISSUES OF HEAD: Normal. CALVARIUM: Normal. VISUALIZED PARANASAL SINUSES AND MASTOID AIR CELLS: Clear. ADDITIONAL FINDINGS: None. IMPRESSION: 1. There is mild motion artifact. Accounting for this, no acute intracranial abnormality. Signer Name: Erich Gibson MD Signed: 02/23/2020 2:33 AM Workstation Name: [id number]
[2020-02-23 02:44] LABS: Basophils % (Auto) 0.4 % (0.0-1.8); Eosinophils # (Auto) 0.1 K/mm3 (0.0-0.4); Hematocrit 41.2 % (30.3-42.9); Hemoglobin 13.6 gm/dl (10.1-14.3); Lymphocytes # (Auto) 1.9 K/mm3 (1.2-5.4); Lymphocytes % (Auto) 27.1 % (13.4-35.0); Mean Corpuscular HGB Conc 33 % (30-34); Mean Corpuscular Volume 83 fl (79-97); Monocytes # (Auto) 0.8 K/mm3 (0.0-0.8); Monocytes % (Auto) 11.6 % (0.0-7.3); Platelet Count 346 K/mm3 (140-440); Red Blood Count 4.98 M/mm3 (3.65-5.03); Red Cell Distribution Width 14.1 % (13.2-15.2)
[2020-02-23 02:56] LABS: Alanine Aminotransferase 42 units/L (7-56); Albumin 4.4 g/dL (3.9-5); Blood Urea Nitrogen 10 mg/dL (7-17); Hemolysis Index 2
[2020-02-23 02:58] LABS: BUN/Creatinine Ratio 33
[2020-02-23] MEDS ORDERED: SODIUM CHLORIDE 0.9% 1000 ML 1,000 ML IV ONE (03:18)
--- NOTE | 2020-02-23 03:58 | Emergency Department Report ---
ED Seizure HPI - General Chief Complaint: Seizure Stated Complaint: SEIZURES Time Seen by Provider: 02/23/20 01:54 Source: EMS Mode of arrival: Stretcher Limitations: Other - History of Present Illness Initial Comments: Patient is a 35-year-old F [place] female who is currently in a longterm history is cerebral palsy and seizures who is on Keppra has been having seizures off and on for the last 2 days according to paramedics who took report from the longterm. Patient is nonverbal at baseline. Patient has not had any fevers nausea vomiting according to paramedics. Unknown what the patient's baseline he is outside of being nonverbal. - Related Data Home Medications Medication Instructions Recorded Confirmed Last Taken Acetaminophen [Acetaminophen TAB] 650 mg PO BID 02/04/15 03/02/18 02/03/15 Baclofen [Lioresal] 5 mg PO DAILY 02/04/15 03/02/18 02/03/15 Ferrous Sulfate [Ferrous Sulfate 7.5 ml PO TID 02/04/15 03/02/18 02/03/15 Oral Liq 220 Mg/5 Ml] Multivit-Minerals/Ferrous Fum 5 ml PO DAILY 02/04/15 03/02/18 02/03/15 [Multivitamin Liquid] medroxyPROGESTERone ACETATE 150 mg IM Q3M 02/04/15 03/02/18 Unknown [Depo-Provera (Contraception)] Docusate Sodium [Diocto ORAL LIQ] 15 ml PO BID 06/03/15 03/02/18 Unknown Previous Rx's Medication Instructions Recorded Last Taken Type LORazepam [Ativan INJ] 0.5 mg IM Q6H PRN #7 vial 02/20/18 Unknown Rx polyethylene glycoL 3350 [Miralax 17 gm PO BID powd.pack 02/20/18 Unknown Rx 3350] levETIRAcetam [Keppra INJ] 20 ml PO BID #60 solution 03/02/18 Unknown Rx Ciprofloxacin HCl [Ciprofloxacin 500 mg PO Q12HR 10 Days #20 tab 12/22/18 Unknown Rx TAB] Allergies Allergy/AdvReac Type Severity Reaction Status Date / Time No Known Allergies Allergy Unverified 02/03/15 14:47 ED Review of Systems ROS: Stated complaint: SEIZURES Other details as noted in HPI Comment: Unobtainable due to pts medical conditions ED Past Medical Hx - Past Medical History Hx Hypertension: No Hx Congestive Heart Failure: No Hx Diabetes: No Hx Seizures: Yes Hx Psychiatric Treatment: Yes (Depressive Disorder, Mood Disorder) Hx Asthma: No Hx COPD: No Hx HIV: No Additional medical history: Cerebral Palsy, Dysphagia, Pseudobulbar Affect, Abnormal Posture, Gastrostomy. Scoliosis - Social History Smoking Status: Unknown if ever smoked - Medications Home Medications: Home Medications Medication Instructions Recorded Confirmed Last Taken Type Acetaminophen [Acetaminophen TAB] 650 mg PO BID 02/04/15 03/02/18 02/03/15 History Baclofen [Lioresal] 5 mg PO DAILY 02/04/15 03/02/18 02/03/15 History Ferrous Sulfate [Ferrous Sulfate 7.5 ml PO TID 02/04/15 03/02/18 02/03/15 History Oral Liq 220 Mg/5 Ml] Multivit-Minerals/Ferrous Fum 5 ml PO DAILY 02/04/15 03/02/18 02/03/15 History [Multivitamin Liquid] medroxyPROGESTERone ACETATE 150 mg IM Q3M 02/04/15 03/02/18 Unknown History [Depo-Provera (Contraception)] Docusate Sodium [Diocto ORAL LIQ] 15 ml PO BID 06/03/15 03/02/18 Unknown History LORazepam [Ativan INJ] 0.5 mg IM Q6H PRN #7 vial 02/20/18 03/02/18 Unknown Rx polyethylene glycoL 3350 [Miralax 17 gm PO BID powd.pack 02/20/18 03/02/18 Unknown Rx 3350] levETIRAcetam [Keppra INJ] 20 ml PO BID #60 solution 03/02/18 Unknown Rx Ciprofloxacin HCl [Ciprofloxacin 500 mg PO Q12HR 10 Days #20 tab 12/22/18 Unknown Rx TAB] ED Physical Exam - General Limitations: Other General appearance: in no apparent distress, postictal - Head Head exam: Present: atraumatic, normocephalic - ENT ENT exam: Present: mucous membranes moist - Neck Neck exam: Present: normal inspection - Respiratory Respiratory exam: Present: normal lung sounds bilaterally. Absent: respiratory distress, wheezes, rales, rhonchi - Cardiovascular Cardiovascular Exam: Present: normal rhythm, tachycardia. Absent: systolic murmur, diastolic murmur, rubs, gallop - GI/Abdominal GI/Abdominal exam: Present: soft, normal bowel sounds. Absent: distended, tenderness, guarding, rebound - Extremities Exam Extremities exam: Present: normal inspection - Back Exam Back exam: Present: normal inspection - Neurological Exam Neurological exam: Present: alert, oriented X3 - Psychiatric Psychiatric exam: Present: normal affect, normal mood - Skin Skin exam: Present: warm, dry, intact, normal color. Absent: rash ED Course Vital Signs 02/23/20 02/23/20 02/23/20 02:03 02:09 03:01 Temperature 99.2 F Pulse Rate 128 H 131 H Respiratory 15 18 Rate Blood Pressure 138/98 127/93 O2 Sat by Pulse 97 96 Oximetry 02/23/20 04:01 Temperature Pulse Rate 137 H Respiratory 26 H Rate Blood Pressure 127/93 O2 Sat by Pulse 98 Oximetry - Reevaluation(s) Reevaluation #1: 02/23/20 04:56 Patient is no longer postictal and is back at her baseline. Patient does have a history of pseudobulbar affect and is yelling and laughing in the room. She has been loaded with Keppra. Patient was given some IV fluids for tachycardia which is improving. Patient is stable for discharge. ED Medical Decision Making - Lab Data Result diagrams: 02/23/20 02:18 02/23/20 02:18 Lab Results 02/23/20 02/23/20 02/23/20 Range/Units 02:18 02:18 02:18 WBC 7.0 (4.5-11.0) K/mm3 RBC 4.98 (3.65-5.03) M/mm3 Hgb 13.6 (10.1-14.3) gm/dl Hct 41.2 (30.3-42.9) % MCV 83 (79-97) fl MCH 27 L (28-32) pg MCHC 33 (30-34) % RDW 14.1 (13.2-15.2) % Plt Count 346 (140-440) K/mm3 Lymph % (Auto) 27.1 (13.4-35.0) % [place] % (Auto) 11.6 H (0.0-7.3) % Eos % (Auto) 1.0 (0.0-4.3) % Baso % (Auto) 0.4 (0.0-1.8) % Lymph # (Auto) 1.9 (1.2-5.4) K/mm3 [place] # (Auto) 0.8 (0.0-0.8) K/mm3 Eos # (Auto) 0.1 (0.0-0.4) K/mm3 Baso # (Auto) 0.0 (0.0-0.1) K/mm3 Seg Neutrophils % 59.9 (40.0-70.0) % Seg Neutrophils # 4.2 (1.8-7.7) K/mm3 Sodium 141 (137-145) mmol/L Potassium 4.0 (3.6-5.0) mmol/L Chloride 105.1 (98-107) mmol/L Carbon Dioxide 24 (22-30) mmol/L Anion Gap 16 mmol/L BUN 10 (7-17) mg/dL Creatinine 0.3 L (0.6-1.2) mg/dL Estimated GFR > 60 ml/min BUN/Creatinine Ratio 33 % Glucose 114 H (65-100) mg/dL Calcium 10.0 (8.4-10.2) mg/dL Total Bilirubin 0.30 (0.1-1.2) mg/dL AST 26 (5-40) units/L ALT 42 (7-56) units/L Alkaline Phosphatase 105 (35-129) units/L Total Protein 7.9 (6.3-8.2) g/dL Albumin 4.4 (3.9-5) g/dL Albumin/Globulin Ratio 1.3 % HCG, Qual Negative (Negative) - Radiology Data Patient: GIN WHITLOCK MR#: [id number] : 1985 Acct:[id number] Age/Sex: 35 / F ADM Date: 02/23/20 Loc: ED Attending Dr: Ordering Physician: MEGHANA VELEZ MD Date of Service: 02/23/20 Procedure(s): CT head/brain wo con Accession Number(s): [id number] cc: MEGHANA VELEZ MD CT HEAD WITHOUT CONTRAST INDICATION: continuous seizure. TECHNIQUE: All CT scans at this location are performed using CT dose reduction for ALARA by means of automated exposure control. COMPARISON: 09/18/2019 FINDINGS: HEMORRHAGE: None. EXTRA-AXIAL SPACES: Normal in size and morphology for the patient's age. VENTRICULAR SYSTEM: Normal in size and morphology for the patient's age. BRAIN PARENCHYMA: No acute findings. Cerebellar atrophy is again noted. MIDLINE SHIFT OR HERNIATION: None. ORBITS: Normal as visualized. SOFT TISSUES OF HEAD: Normal. CALVARIUM: Normal. VISUALIZED PARANASAL SINUSES AND MASTOID AIR CELLS: Clear. ADDITIONAL FINDINGS: None. IMPRESSION: 1. There is mild motion artifact. Accounting for this, no acute intracranial abnormality. Signer Name: Erich Gibson MD Signed: 02/23/2020 2:33 AM Workstation Name: [id number] Critical care attestation.: If time is entered above; I have spent that time in minutes in the direct care of this critically ill patient, excluding procedure time. ED Disposition Clinical Impression: Cerebral palsy, Seizure disorder Disposition: DC-01 TO HOME OR SELFCARE Is pt being admited?: No Does the pt Need Aspirin: No Condition: Stable Time of Disposition: 04:57
[2020-02-23 04:39] VITALS: BP 127/93
== END 2020-02-23 08:07 | disposition home or self-care (01) ==
LOC: ED 01:47
DX: G40.909 Epilepsy, unspecified, not intractable, without status epilepticus (principal); G80.8 Other cerebral palsy; F32.89 Other specified depressive episodes; F39 Unspecified mood [affective] disorder; Z79.899 Other long term (current) drug therapy
CPT/HCPCS: 36415; 70450; 80053; 84703; 85025; 96361; 96365; 99284; J1953; J7030

== ENCOUNTER 2021-07-06 18:46 | Emergency (ER) | payer MEDICAID ==
[2021-07-06] MEDS ORDERED: levETIRAcetam 1000 MG/NS 0.75% 1,000 MG/100 ML BAG IV ONE (19:02)
--- NOTE | 2021-07-06 19:13 | Emergency Department Report ---
HPI - General Chief Complaint: Seizure Time Seen by Provider: 07/06/21 19:00 - HPI HPI: Room 1 The patient is a 36-year-old female present with a chief complaint of seizures. Patient sent from [facility] after having seizures. EMS was called and the patient had 2 seizures in route and was administered Ativan 2 mg IM prior to arrival ED Past Medical Hx - Past Medical History Hx Seizures: Yes Hx Psychiatric Treatment: Yes (Depressive Disorder, Mood Disorder) Additional medical history: Cerebral Palsy, Dysphagia, Pseudobulbar Affect, Abnormal Posture, Gastrostomy. Scoliosis - Surgical History Past Surgical History?: No - Family History Family history: no significant - Social History Smoking Status: Unknown if ever smoked Substance Use Type: None - Medications Home Medications: Home Medications Medication Instructions Recorded Confirmed Last Taken Type Acetaminophen [Acetaminophen TAB] 650 mg PO BID 02/04/15 03/02/18 02/03/15 History Baclofen [Lioresal] 5 mg PO DAILY 02/04/15 03/02/18 02/03/15 History Ferrous Sulfate [Ferrous Sulfate 7.5 ml PO TID 02/04/15 03/02/18 02/03/15 History Oral Liq 220 Mg/5 Ml] Multivit-Minerals/Ferrous Fum 5 ml PO DAILY 02/04/15 03/02/18 02/03/15 History [Multivitamin Liquid] medroxyPROGESTERone ACETATE 150 mg IM Q3M 02/04/15 03/02/18 Unknown History [Depo-Provera (Contraception)] Docusate Sodium [Diocto ORAL LIQ] 15 ml PO BID 06/03/15 03/02/18 Unknown History LORazepam [Ativan INJ] 0.5 mg IM Q6H PRN #7 vial 02/20/18 03/02/18 Unknown Rx polyethylene glycoL 3350 [Miralax 17 gm PO BID powd.pack 02/20/18 03/02/18 Unknown Rx 3350] levETIRAcetam [Keppra INJ] 20 ml PO BID #60 solution 03/02/18 Unknown Rx Ciprofloxacin HCl [Ciprofloxacin 500 mg PO Q12HR 10 Days #20 tab 12/22/18 Unknown Rx TAB] ED Review of Systems ROS: Stated complaint: SEIZURE Other details as noted in HPI Comment: Unobtainable due to pts medical conditions Physical Exam - Physical Exam Vital Signs: Vital Signs 07/06/21 18:48 Pulse Rate 110 H Blood Pressure 125/81 [Left] O2 Sat by Pulse 97 Oximetry Physical Exam: GENERAL: The patient is well-nourished female lying on stretcher having IV placed by nursing staff HEENT: Normocephalic. Atraumatic. Extraocular motions are intact. Patient has moist mucous membranes. NECK: Supple. Trachea midline CHEST/LUNGS: Clear to auscultation. There is no respiratory distress noted. HEART/CARDIOVASCULAR: Regular. There is no tachycardia. There is no gallop rub or murmur. ABDOMEN: Abdomen is soft, nontender. Patient has normal bowel sounds. There is no abdominal distention. SKIN: There is no rash. There is no edema. There is no diaphoresis. NEURO: The patient is awake and alert. The patient has cerebral palsy and makes eye contact but does not answer questions. MUSCULOSKELETAL: There is no evidence of acute injury. ED Course Vital Signs 07/06/21 18:48 Pulse Rate 110 H Blood Pressure 125/81 [Left] O2 Sat by Pulse 97 Oximetry - Reevaluation(s) Reevaluation #1: 07/06/21 21:33 No further seizure activity in the ED ED Medical Decision Making - Lab Data Result diagrams: 07/06/21 19:01 07/06/21 19:01 Laboratory Tests 07/06/21 07/06/21 07/06/21 19:01 19:01 19:02 WBC 8.6 RBC 5.01 Hgb 13.7 Hct 42.4 MCV 85 MCH 27 L MCHC 32 RDW 13.6 Plt Count 327 Lymph % (Auto) 34.4 [place] % (Auto) 12.8 H Eos % (Auto) 1.1 Baso % (Auto) 0.5 Lymph # (Auto) 3.0 [place] # (Auto) 1.1 H Eos # (Auto) 0.1 Baso # (Auto) 0.0 Seg Neutrophils % 51.2 Seg Neutrophils # 4.4 Sodium 139 Potassium 3.9 Chloride 103.6 Carbon Dioxide 21 L Anion Gap 18 BUN 8 Creatinine 0.5 L Estimated GFR > 60 BUN/Creatinine Ratio 16 Glucose 84 Calcium 9.3 Magnesium 2.10 HCG, Qual 07/06/21 19:16 WBC RBC Hgb Hct MCV MCH MCHC RDW Plt Count Lymph % (Auto) [place] % (Auto) Eos % (Auto) Baso % (Auto) Lymph # (Auto) [place] # (Auto) Eos # (Auto) Baso # (Auto) Seg Neutrophils % Seg Neutrophils # Sodium Potassium Chloride Carbon Dioxide Anion Gap BUN Creatinine Estimated GFR BUN/Creatinine Ratio Glucose Calcium Magnesium HCG, Qual Negative - Differential Diagnosis Seizure Critical care attestation.: If time is entered above; I have spent that time in minutes in the direct care of this critically ill patient, excluding procedure time. ED Disposition Clinical Impression: Seizure Disposition: [address] [facility] Is pt being admited?: No Does the pt Need Aspirin: No Condition: Stable Instructions: Epilepsy, [id number] Additional Instructions: Return to the emergency department should you develop worsening symptoms, inability to tolerate food or liquids, high fever or any other concerns Referrals: PRIMARY CARE, [Primary Care Provider] - 3-5 Days Time of Disposition: 21:34
[2021-07-06 19:54] LABS: Basophils % (Auto) 0.5 % (0.0-1.8); Eosinophils # (Auto) 0.1 K/mm3 (0.0-0.4); Eosinophils % (Auto) 1.1 % (0.0-4.3); Hematocrit 42.4 % (30.3-42.9); Hemoglobin 13.7 gm/dl (10.1-14.3); Lymphocytes % (Auto) 34.4 % (13.4-35.0); Mean Corpuscular HGB Conc 32 % (30-34); Mean Corpuscular Volume 85 fl (79-97); Monocytes # (Auto) 1.1 K/mm3 (0.0-0.8); Monocytes % (Auto) 12.8 % (0.0-7.3); Platelet Count 327 K/mm3 (140-440); Red Blood Count 5.01 M/mm3 (3.65-5.03); Red Cell Distribution Width 13.6 % (13.2-15.2)
[2021-07-06 20:09] LABS: Blood Urea Nitrogen 8 mg/dL (7-17); Calcium 9.3 mg/dL (8.4-10.2); Hemolysis Index 20
[2021-07-06 20:22] LABS: BUN/Creatinine Ratio 16
[2021-07-07 02:14] VITALS: BP 120/73
== END 2021-07-07 02:15 ==
LOC: ED 18:46
DX: R56.9 Unspecified convulsions (principal)
CPT/HCPCS: 36415; 80048; 83735; 84703; 85025; 96374; 99284; J1953

== ENCOUNTER 2021-11-03 02:38 | Inpatient (IN) | payer MEDICAID ==
[2021-11-03] MEDS ORDERED: levETIRAcetam 1000 MG/NS 0.75% 1,000 MG/100 ML BAG IV ONE (03:46)
[2021-11-03] MEDS ORDERED: levETIRAcetam 500 MG/5 ML ORAL LIQD FEEDTUBE ONE ×2 (03:50→07:44)
--- NOTE | 2021-11-03 03:56 | Emergency Department Report ---
HPI - General Chief Complaint: Seizure Time Seen by Provider: 11/03/21 03:44 - HPI HPI: Room 4 Patient is a 36-year-old female present with chief complaint of seizure activity. Patient is a resident in [facility] was reported to have seizure-like activity. Patient has a history of seizures is reportedly on Keppra. Patient has a history of cerebral palsy and is currently at her mental baseline per EMS ED Past Medical Hx - Past Medical History Hx Seizures: Yes Hx Psychiatric Treatment: Yes (Depressive Disorder, Mood Disorder) Additional medical history: Cerebral Palsy, Dysphagia, Pseudobulbar Affect, Abnormal Posture, Gastrostomy. Scoliosis - Surgical History Additional Surgical History: Feeding tube - Family History Family history: no significant - Social History Smoking Status: Never Smoker - Medications Home Medications: Home Medications Medication Instructions Recorded Confirmed Last Taken Type Acetaminophen [Acetaminophen TAB] 650 mg PO BID 02/04/15 03/02/18 02/03/15 History Baclofen [Lioresal] 5 mg PO DAILY 02/04/15 03/02/18 02/03/15 History Ferrous Sulfate [Ferrous Sulfate 7.5 ml PO TID 02/04/15 03/02/18 02/03/15 History Oral Liq 220 Mg/5 Ml] Multivit-Minerals/Ferrous Fum 5 ml PO DAILY 02/04/15 03/02/18 02/03/15 History [Multivitamin Liquid] medroxyPROGESTERone ACETATE 150 mg IM Q3M 02/04/15 03/02/18 Unknown History [Depo-Provera (Contraception)] Docusate Sodium [Diocto ORAL LIQ] 15 ml PO BID 06/03/15 03/02/18 Unknown History LORazepam [Ativan INJ] 0.5 mg IM Q6H PRN #7 vial 02/20/18 03/02/18 Unknown Rx polyethylene glycoL 3350 [Miralax 17 gm PO BID powd.pack 02/20/18 03/02/18 Unknown Rx 3350] levETIRAcetam [Keppra INJ] 20 ml PO BID #60 solution 03/02/18 Unknown Rx Ciprofloxacin HCl [Ciprofloxacin 500 mg PO Q12HR 10 Days #20 tab 12/22/18 Unknown Rx TAB] ED Review of Systems ROS: Stated complaint: SEIZURES Other details as noted in HPI Comment: Unobtainable due to pts medical conditions (Cerebral palsy) Physical Exam - Physical Exam Vital Signs: Vital Signs 11/03/21 11/03/21 03:19 03:20 Temperature 98.8 F Pulse Rate 113 H Respiratory 22 22 Rate Blood Pressure 115/78 [Left] O2 Sat by Pulse 96 96 Oximetry Physical Exam: GENERAL: The patient is well-nourished female lying on stretcher not appearing to be in acute distress. [] HEENT: Normocephalic. Atraumatic. Patient has moist mucous membranes. NECK: Supple. Trachea midline CHEST/LUNGS: Clear to auscultation. There is no respiratory distress noted. HEART/CARDIOVASCULAR: Regular. There is no tachycardia. There is no gallop rub or murmur. ABDOMEN: Abdomen is soft, nontender. Patient has normal bowel sounds. There is no abdominal distention. SKIN: There is no rash. There is no edema. There is no diaphoresis. NEURO: The patient is resting comfortably and at her mental baseline per EMS. MUSCULOSKELETAL:There is no evidence of acute injury. ED Course Vital Signs 11/03/21 11/03/21 03:19 03:20 Temperature 98.8 F Pulse Rate 113 H Respiratory 22 22 Rate Blood Pressure 115/78 [Left] O2 Sat by Pulse 96 96 Oximetry ED Medical Decision Making - Lab Data Result diagrams: 11/03/21 04:09 11/03/21 04:09 - Differential Diagnosis Seizures Critical care attestation.: If time is entered above; I have spent that time in minutes in the direct care of this critically ill patient, excluding procedure time. ED Disposition Clinical Impression: Seizure, Hypokalemia, Cerebral palsy Disposition: 03 LONG TERM FACILITY Is pt being admited?: No Does the pt Need Aspirin: No Condition: Stable Referrals: PRIMARY CARE, [Primary Care Provider] - 3-5 Days Time of Disposition: 05:29
[2021-11-03 04:44] LABS: Basophils % (Auto) 0.5 % (0.0-1.8); Eosinophils % (Auto) 0.5 % (0.0-4.3); Hematocrit 39.9 % (30.3-42.9); Hemoglobin 12.8 gm/dl (10.1-14.3); Lymphocytes # (Auto) 1.9 K/mm3 (1.2-5.4); Lymphocytes % (Auto) 22.6 % (13.4-35.0); Mean Corpuscular HGB Conc 32 % (30-34); Mean Corpuscular Volume 85 fl (79-97); Monocytes # (Auto) 1.1 K/mm3 (0.0-0.8); Monocytes % (Auto) 13.5 % (0.0-7.3); Platelet Count 267 K/mm3 (140-440); Red Blood Count 4.67 M/mm3 (3.65-5.03); Red Cell Distribution Width 15.1 % (13.2-15.2)
[2021-11-03 04:52] LABS: Blood Urea Nitrogen 13 mg/dL (7-17); Calcium 9.4 mg/dL (8.4-10.2); Hemolysis Index 8
[2021-11-03 04:57] LABS: BUN/Creatinine Ratio 26
[2021-11-03] MEDS ORDERED: POTASSIUM CHLORIDE 20 MEQ PACKET FEEDTUBE ONE (05:28)
--- NOTE | 2021-11-03 07:53 | Event Note ---
Date: 11/03/21 Patient continues to have multiple convulsive events. They are now terminated. She is awake, and breathing spontaneously and in no acute respiratory distress. Given multiple convulsive events, we will admit the patient to the medical service for continued supportive care and close monitoring. Chest x-ray unremarkable. Urinalysis pending. Noncontrast CT scan of the brain is pending. EKG is pending. As per review of old chart, patient has cerebral palsy, functional quadriplegia, and is a [facility] [facility] Have evaluated CT scan brain, do not appreciate a bleed. Formal interpretation is pending. Hospital physician, Dr. Wetzel to admit for multiple convulsions and seizures. CHEST 1 VIEW 11/03/2021 8:03 AM INDICATION / CLINICAL INFORMATION: Multiple seizures and convulsive. COMPARISON: 09/18/19 FINDINGS: SUPPORT DEVICES: None. HEART / MEDIASTINUM: No significant abnormality. LUNGS / PLEURA: No significant pulmonary or pleural abnormality. No pneumothorax. ADDITIONAL FINDINGS: No significant additional findings. IMPRESSION: 1. No acute findings. Signer Name: Azam Castaneda MD Signed: 11/03/2021 7:16 AM Workstation Name: [id number] Vital Signs 11/03/21 11/03/21 11/03/21 03:16 03:19 03:20 Temperature 98.8 F Pulse Rate 113 H Respiratory 22 22 Rate Blood Pressure Blood Pressure 115/78 [Left] O2 Sat by Pulse 96 96 96 Oximetry 11/03/21 11/03/21 11/03/21 03:30 03:46 04:00 Temperature Pulse Rate 110 H 101 H 106 H Respiratory 18 16 21 Rate Blood Pressure 115/78 107/60 107/60 Blood Pressure [Left] O2 Sat by Pulse 95 95 96 Oximetry 11/03/21 11/03/21 11/03/21 04:16 04:30 04:46 Temperature Pulse Rate 130 H 102 H 94 H Respiratory 37 H 18 22 Rate Blood Pressure 114/59 134/80 110/78 Blood Pressure [Left] O2 Sat by Pulse 82 L 97 98 Oximetry 11/03/21 11/03/21 11/03/21 05:00 05:16 05:30 Temperature Pulse Rate 104 H 104 H 100 H Respiratory 18 17 19 Rate Blood Pressure 110/78 122/74 122/74 Blood Pressure [Left] O2 Sat by Pulse 96 96 95 Oximetry 11/03/21 11/03/21 05:46 06:00 Temperature Pulse Rate 101 H 100 H Respiratory 17 17 Rate Blood Pressure 119/60 119/60 Blood Pressure [Left] O2 Sat by Pulse 93 96 Oximetry Lab Results 11/03/21 11/03/21 11/03/21 Range/Units 04:09 04:09 04:09 WBC 8.3 (4.5-11.0) K/mm3 RBC 4.67 (3.65-5.03) M/mm3 Hgb 12.8 (10.1-14.3) gm/dl Hct 39.9 (30.3-42.9) % MCV 85 (79-97) fl MCH 27 L (28-32) pg MCHC 32 (30-34) % RDW 15.1 (13.2-15.2) % Plt Count 267 (140-440) K/mm3 Lymph % (Auto) 22.6 (13.4-35.0) % [place] % (Auto) 13.5 H (0.0-7.3) % Eos % (Auto) 0.5 (0.0-4.3) % Baso % (Auto) 0.5 (0.0-1.8) % Lymph # (Auto) 1.9 (1.2-5.4) K/mm3 [place] # (Auto) 1.1 H (0.0-0.8) K/mm3 Eos # (Auto) 0.0 (0.0-0.4) K/mm3 Baso # (Auto) 0.0 (0.0-0.1) K/mm3 Seg Neutrophils % 62.9 (40.0-70.0) % Seg Neutrophils # 5.2 (1.8-7.7) K/mm3 Sodium 144 (137-145) mmol/L Potassium 3.3 L (3.6-5.0) mmol/L Chloride 104.3 (98-107) mmol/L Carbon Dioxide 26 (22-30) mmol/L Anion Gap 17 mmol/L BUN 13 (7-17) mg/dL Creatinine 0.5 L (0.6-1.2) mg/dL Estimated GFR > 60 ml/min BUN/Creatinine Ratio 26 % Glucose 75 (65-100) mg/dL POC Glucose (70-105) mg/dL Calcium 9.4 (8.4-10.2) mg/dL Magnesium 2.30 (1.7-2.3) mg/dL HCG, Qual Negative (Negative) 11/03/21 Range/Units 07:42 WBC (4.5-11.0) K/mm3 RBC (3.65-5.03) M/mm3 Hgb (10.1-14.3) gm/dl Hct (30.3-42.9) % MCV (79-97) fl MCH (28-32) pg MCHC (30-34) % RDW (13.2-15.2) % Plt Count (140-440) K/mm3 Lymph % (Auto) (13.4-35.0) % [place] % (Auto) (0.0-7.3) % Eos % (Auto) (0.0-4.3) % Baso % (Auto) (0.0-1.8) % Lymph # (Auto) (1.2-5.4) K/mm3 [place] # (Auto) (0.0-0.8) K/mm3 Eos # (Auto) (0.0-0.4) K/mm3 Baso # (Auto) (0.0-0.1) K/mm3 Seg Neutrophils % (40.0-70.0) % Seg Neutrophils # (1.8-7.7) K/mm3 Sodium (137-145) mmol/L Potassium (3.6-5.0) mmol/L Chloride (98-107) mmol/L Carbon Dioxide (22-30) mmol/L Anion Gap mmol/L BUN (7-17) mg/dL Creatinine (0.6-1.2) mg/dL Estimated GFR ml/min BUN/Creatinine Ratio % Glucose (65-100) mg/dL POC Glucose 82 (70-105) mg/dL Calcium (8.4-10.2) mg/dL Magnesium (1.7-2.3) mg/dL HCG, Qual (Negative) CT scan brain negative for acute findings. Defer to inpatient team to further manage. Urinalysis pending
--- NOTE | 2021-11-03 08:21 | XRay Report ---
CHEST 1 VIEW 11/03/2021 8:03 AM INDICATION / CLINICAL INFORMATION: Multiple seizures and convulsive. COMPARISON: 09/18/19 FINDINGS: SUPPORT DEVICES: None. HEART / MEDIASTINUM: No significant abnormality. LUNGS / PLEURA: No significant pulmonary or pleural abnormality. No pneumothorax. ADDITIONAL FINDINGS: No significant additional findings. IMPRESSION: 1. No acute findings. Signer Name: Azam Castaneda MD Signed: 11/03/2021 8:16 AM Workstation Name: [email or web address]
[2021-11-03] MEDS ORDERED: MIDAZOLAM 2 MG/2 ML INJ ONE (09:16)
[2021-11-03] MEDS ORDERED: MIDAZOLAM 2 MG/2 ML INJ IV PRN (09:16)
--- NOTE | 2021-11-03 09:17 | Cat Scan Report ---
CT HEAD WITHOUT CONTRAST INDICATION / CLINICAL INFORMATION: Multiple seizures and convulsive. TECHNIQUE: Axial imaging performed from the skull apex through the skull base without the use of cont rast. Sagittal and coronal reformatted images. All CT scans at this location are performed using CT dose reduction for ALARA by means of automated exposure control. COMPARISON: 02/23/2020 FINDINGS: CEREBRAL PARENCHYMA: No acute parenchymal abnormality. Mild chronic ischemic changes in the white mat ter are noted. HEMORRHAGE: None. EXTRA-AXIAL SPACES: Normal in size and morphology for the patient's age. VENTRICULAR SYSTEM: Normal in size and morphology for the patient's age. MIDLINE SHIFT OR HERNIATION: None. CEREBELLUM / BRAINSTEM: Mild volume loss, unchanged. No acute abnormality. CALVARIUM: No significant abnormality. ORBITS: Normal as visualized. PARANASAL SINUSES / MASTOID AIR CELLS: Normal as visualized. SOFT TISSUES of HEAD: No significant abnormality. ADDITIONAL FINDINGS: None. IMPRESSION: No acute intracranial abnormality. Mild chronic ischemic changes in the white matter and mild atrophy as described. No significant change since 02/23/2020. Signer Name: Guevara Tavarez Jr, MD Signed: 11/03/2021 9:13 AM Workstation Name: [id number]
[2021-11-03] MEDS ORDERED: PHENYTOIN 1,000 MG in SODIUM CHLORIDE 0.9% 250ML 250 ML IV ONE (10:00)
[2021-11-03 11:00] LABS: Color,Urine Yellow (Yellow)
[2021-11-03 11:01] LABS: Bilirubin,Urine Negative (Negative); Blood,Urine 3+ (Negative)
--- NOTE | 2021-11-03 12:58 | History and Physical Report ---
History of Present Illness Date of examination: 11/03/21 Date of admission: 11/03/2021 Chief complaint: Seizure disorder History of present illness: 36-year-old female with significant past medical history of seizure disorder and cerebral palsy who at baseline is a functional quadriplegic and nonverbal presents with to the emergency department with a chief complaint of seizures. Patient is [facility] resident and has had previous admissions over the past few years for seizure disorder. Upon my evaluation, patient was noted to have multiple seizures approximately 15 minutes apart with each seizure lasting approximately 2 minutes. Patient has received Keppra IV and IV Dilantin with no relief at present. The patient will be admitted to [facility] for further evaluation Past History Past Medical History: diabetes, seizures, other (History of cerebral palsy) Past Surgical History: No surgical history Social history: no significant social history Family history: no significant family history Medications and Allergies Allergies Allergy/AdvReac Type Severity Reaction Status Date / Time No Known Allergies Allergy Verified 07/06/21 18:48 Home Medications Medication Instructions Recorded Confirmed Last Taken Type Acetaminophen [Acetaminophen TAB] 650 mg PO BID 02/04/15 03/02/18 02/03/15 History Baclofen [Lioresal] 5 mg PO DAILY 02/04/15 03/02/18 02/03/15 History Ferrous Sulfate [Ferrous Sulfate 7.5 ml PO TID 02/04/15 03/02/18 02/03/15 History Oral Liq 220 Mg/5 Ml] Multivit-Minerals/Ferrous Fum 5 ml PO DAILY 02/04/15 03/02/18 02/03/15 History [Multivitamin Liquid] medroxyPROGESTERone ACETATE 150 mg IM Q3M 02/04/15 03/02/18 Unknown History [Depo-Provera (Contraception)] Docusate Sodium [Diocto ORAL LIQ] 15 ml PO BID 06/03/15 03/02/18 Unknown History LORazepam [Ativan INJ] 0.5 mg IM Q6H PRN #7 vial 02/20/18 03/02/18 Unknown Rx polyethylene glycoL 3350 [Miralax 17 gm PO BID powd.pack 02/20/18 03/02/18 Unknown Rx 3350] levETIRAcetam [Keppra INJ] 20 ml PO BID #60 solution 03/02/18 Unknown Rx Ciprofloxacin HCl [Ciprofloxacin 500 mg PO Q12HR 10 Days #20 tab 12/22/18 Unknown Rx TAB] Active Meds: Active Medications Midazolam HCl (Midazolam 2 Mg/2 Ml Inj) 2 mg IV Q6HR PRN PRN Reason: Seizures Review of Systems ROS unobtainable: due to mental status Exam - Constitutional Vitals: Temp Pulse Resp BP Pulse Ox 98.8 F 115 H 17 111/75 96 11/03/21 03:19 11/03/21 12:16 11/03/21 12:16 11/03/21 12:16 11/03/21 12:16 General appearance: Present: mild distress, well-nourished - EENT Eyes: Present: PERRL ENT: hearing intact, clear oral mucosa - Neck Neck: Present: supple, normal ROM - Respiratory Respiratory effort: normal Respiratory: bilateral: diminished - Cardiovascular Heart Sounds: Present: S1 & S2. Absent: rub, click - Extremities Extremities: pulses symmetrical, No edema Peripheral Pulses: within normal limits - Abdominal General gastrointestinal: Present: soft, non-tender, non-distended, normal bowel sounds Female genitourinary: Present: normal - Integumentary Integumentary: Present: clear, warm, dry - Musculoskeletal Musculoskeletal: gait normal, strength equal bilaterally - Psychiatric Psychiatric: appropriate mood/affect, intact judgment & insight - Neurologic Neurologic: other (Functional quadriplegic, nonverbal, does not follow command) Results - Labs CBC & Chem 7: 11/03/21 04:09 11/03/21 04:09 Labs: Laboratory Last Values WBC 8.3 K/mm3 (4.5-11.0) 11/03/21 04:09 RBC 4.67 M/mm3 (3.65-5.03) 11/03/21 04:09 Hgb 12.8 gm/dl (10.1-14.3) 11/03/21 04:09 Hct 39.9 % (30.3-42.9) 11/03/21 04:09 MCV 85 fl (79-97) 11/03/21 04:09 MCH 27 pg (28-32) L 11/03/21 04:09 MCHC 32 % (30-34) 11/03/21 04:09 RDW 15.1 % (13.2-15.2) 11/03/21 04:09 Plt Count 267 K/mm3 (140-440) 11/03/21 04:09 Lymph % (Auto) 22.6 % (13.4-35.0) 11/03/21 04:09 Irion % (Auto) 13.5 % (0.0-7.3) H 11/03/21 04:09 Eos % (Auto) 0.5 % (0.0-4.3) 11/03/21 04:09 Baso % (Auto) 0.5 % (0.0-1.8) 11/03/21 04:09 Lymph # (Auto) 1.9 K/mm3 (1.2-5.4) 11/03/21 04:09 Irion # (Auto) 1.1 K/mm3 (0.0-0.8) H 11/03/21 04:09 Eos # (Auto) 0.0 K/mm3 (0.0-0.4) 11/03/21 04:09 Baso # (Auto) 0.0 K/mm3 (0.0-0.1) 11/03/21 04:09 Seg Neutrophils % 62.9 % (40.0-70.0) 11/03/21 04:09 Seg Neutrophils # 5.2 K/mm3 (1.8-7.7) 11/03/21 04:09 Sodium 144 mmol/L (137-145) 11/03/21 04:09 Potassium 3.3 mmol/L (3.6-5.0) L 11/03/21 04:09 Chloride 104.3 mmol/L (98-107) 11/03/21 04:09 Carbon Dioxide 26 mmol/L (22-30) 11/03/21 04:09 Anion Gap 17 mmol/L 11/03/21 04:09 BUN 13 mg/dL (7-17) 11/03/21 04:09 Creatinine 0.5 mg/dL (0.6-1.2) L 11/03/21 04:09 Estimated GFR > 60 ml/min 11/03/21 04:09 BUN/Creatinine Ratio 26 % 11/03/21 04:09 Glucose 75 mg/dL (65-100) 11/03/21 04:09 POC Glucose 82 mg/dL (70-105) 11/03/21 07:42 Calcium 9.4 mg/dL (8.4-10.2) 11/03/21 04:09 Magnesium 2.30 mg/dL (1.7-2.3) 11/03/21 04:09 Total Creatine Kinase 152 units/L (30-135) H 11/03/21 08:04 HCG, Qual Negative (Negative) 11/03/21 04:09 Urine Color Yellow (Yellow) 11/03/21 10:25 Urine Turbidity Clear (Clear) 11/03/21 10:25 Urine pH 6.0 (5.0-7.0) 11/03/21 10:25 Ur Specific [place] 1.015 (1.003-1.030) 11/03/21 10:25 Urine Protein 100 mg/dl mg/dL (Negative) 11/03/21 10:25 Urine Glucose (UA) Negative mg/dL (Negative) 11/03/21 10:25 Urine Ketones 1+ mg/dL (Negative) 11/03/21 10:25 Urine Blood 3+ (Negative) 11/03/21 10:25 Urine Nitrite Negative (Negative) 11/03/21 10:25 Urine Bilirubin Negative (Negative) 11/03/21 10:25 Urine Urobilinogen 0.0 mg/dL (<2.0) 11/03/21 10:25 Ur Leukocyte Esterase 1+ (Negative) 11/03/21 10:25 Assessment and Plan Assessment and plan: 36-year-old female with significant past medical history of seizure disorder and cerebral palsy who at baseline is a functional quadriplegic and nonverbal presents with to the emergency department with a chief complaint of seizures. Patient is [facility] resident and has had previous admissions over the past few years for seizure disorder. Upon my evaluation, patient was noted to have multiple seizures approximately 15 minutes apart with each seizure lasting approximately 2 minutes. Patient has received Keppra IV and IV Dilantin with no relief at present. The patient will be admitted to IM for further evaluation Status epilepticus/seizure disorder Diabetes mellitus type 2 Cerebral palsy Functional quadriplegic Oropharyngeal dysphagia 11/03/2021. Patient will be admitted to IMCU for closer monitoring. Patient has received Keppra IV and IV Dilantin without relief at this time. I consulted teleneurology with Dr. Balderas who recommended adding Vimpat. We will continue with Ativan for breakthrough seizures. Patient's baseline is functional quadriplegic and nonverbal. However, additionally she may have concomitant postictal state as well. Consult neurology with Dr. Paz. If seizures do not mary, patient may need to be transferred to tertiary facility for continuous EE G monitoring. We will order spot EEG for now. Continue seizure precautions. No infectious etiology at present. Urinalysis negative and chest x-ray negative. I do not suspect noncompliance given that the patient is a resident of a shelter and I do believe she is getting medications properly. Home medication is Keppra 1000 mg in the morning and 500 mg in the evening. Continue TF for nutrition, consult dietitian.
[2021-11-03] MEDS ORDERED: MORPHINE 4 MG/1 ML INJ IV PRN (13:03)
[2021-11-03] MEDS ORDERED: DEXTROSE 50% IN WATER (25GM) 50 ML SYRINGE IV PRN (13:03)
[2021-11-03] MEDS ORDERED: oxyCODONE /ACETAMINOPHEN 5-325MG TAB PO PRN (13:03)
[2021-11-03] MEDS ORDERED: ONDANSETRON 4 MG/2 ML INJ IV PRN (13:03)
[2021-11-03] MEDS ORDERED: ACETAMINOPHEN 325 MG TAB PO PRN ×2 (13:03)
[2021-11-03] MEDS ORDERED: LORazepam 2 MG/ML VIAL IM PRN ×2 (13:10→22:22)
[2021-11-03] MEDS ORDERED: LORazepam 2 MG/ML VIAL IV PRN (13:14)
--- NOTE | 2021-11-03 13:20 | Consultation ---
History of Present Illness Consult date: 11/03/21 History of present illness: [facility] Consult Note # Demographics Consult Type: General Neurology Patient Location: Emergency Room First Name: Richard Last Name: Henrique Date of : 1985 Age: 36 Gender: Female Facility: [facility] Time of Initial Page ( Time): 11/03/2021, 12:41 Time of Return Call ( Time): 11/03/2021, 12:42 # HPI Chief Complaint: seizure History: Per ER Physician, history of cerebral palsy with functional delay & epilepsy. Limited baseline mental status per ER Physician report. Received Keppra 3g & Phenytoin 1g in ER. Question about titrating AED & whether she needed continuous EEG monitoring. Currently on baclofen 10mg per G-tube, Keppra solution 10ml in AM & 5ml qHS per G-tube (100mg/ml). Hospital Physician unsure if patient has VNS or outside Neurologist/ Epileptologist. # Scores NIHSS Total: 0 Modified Aiden Scale (mRS) pre-stroke: [5] = Severe disability... bedridden... Modified Aiden Scale total: 5 # Exam SBP: 111 DBP: 75 Mental Status: lethargic Non-verbal or interactive - reportedly at baseline. Did not move arms or legs spontaneously on observation. Additional Neurologic Exam: PLEASE DISREGARD NIHSS score - entered in error Evaluation limited due to observational assessment. There was no telepresenter available at bedside. In-person exam may be helpful for more subtle signs that cannot be detected via telemedicine. # Data Time Head CT personally read by me ( Time): 11/03/2021, 12:[address]: no bleed per radiologist read # Assessment Impression: Seizure # Plan Labs: ABG Ammonia B12 CBC comprehensive metabolic panel ESR hemoglobin A1c lipid panel thiamine troponin TSH urine drug screen ua Infectious work-up; Keppra level Imaging: (urgency: routine): MRI Brain with AND without contrast If possible, brain MRI with seizure protocol (but would defer & manage clinically if patient not able to tolerate) Diagnostic Test: EEG Would check routine study to rule out status currently given limited clinical exam - continuous EEG does not appear to be indicated currently given history of epilepsy & frequent seizures Medication: Consider adding lacosamide 50mg BID solution DVT Prophylaxis: SCD chemical DVT prophylaxis Other: telemetry monitoring seizure precautions I have discussed my recommendations with the referring provider Additional Recommendations: Epileptologist/ Neurologist consultation as outpatient for further evaluation & management (i.e., VNS placement if not already completed) # Logistics Telemedicine: Interactive 2 way audio and visual telecommunication technology was utilized during this visit Past History Past Medical History: diabetes, seizures, other (History of cerebral palsy) Past Surgical History: No surgical history Social history: no significant social history Family history: no significant family history Medications and Allergies Allergies Allergy/AdvReac Type Severity Reaction Status Date / Time No Known Allergies Allergy Verified 07/06/21 18:48 Home Medications Medication Instructions Recorded Confirmed Last Taken Type Acetaminophen [Acetaminophen TAB] 650 mg PO BID 02/04/15 03/02/18 02/03/15 History Baclofen [Lioresal] 5 mg PO DAILY 02/04/15 03/02/18 02/03/15 History Ferrous Sulfate [Ferrous Sulfate 7.5 ml PO TID 02/04/15 03/02/18 02/03/15 History Oral Liq 220 Mg/5 Ml] Multivit-Minerals/Ferrous Fum 5 ml PO DAILY 02/04/15 03/02/18 02/03/15 History [Multivitamin Liquid] medroxyPROGESTERone ACETATE 150 mg IM Q3M 02/04/15 03/02/18 Unknown History [Depo-Provera (Contraception)] Docusate Sodium [Diocto ORAL LIQ] 15 ml PO BID 06/03/15 03/02/18 Unknown History LORazepam [Ativan INJ] 0.5 mg IM Q6H PRN #7 vial 02/20/18 03/02/18 Unknown Rx polyethylene glycoL 3350 [Miralax 17 gm PO BID powd.pack 02/20/18 03/02/18 Unknown Rx 3350] levETIRAcetam [Keppra INJ] 20 ml PO BID #60 solution 03/02/18 Unknown Rx Ciprofloxacin HCl [Ciprofloxacin 500 mg PO Q12HR 10 Days #20 tab 12/22/18 Unknown Rx TAB] Active Meds: Active Medications Acetaminophen (Acetaminophen 325 Mg Tab) 650 mg PO Q4H PRN PRN Reason: Pain MILD(1-3)/Fever >100.5/MCGEE Acetaminophen (Acetaminophen 325 Mg Tab) 650 mg PO BID [facility] Baclofen (Baclofen 10 Mg Tab) 5 mg PO DAILY [facility] Dextrose (Dextrose 50% In Water (25gm) 50 Ml Syringe) 50 ml IV Q30MIN PRN; Protocol PRN Reason: Hypoglycemia Sodium Chloride (Nacl 0.9% 1000 Ml) 1,000 mls @ 75 mls/hr IV DIRECT [facility] Lacosamide (Lacosamide 50 Mg Tab) 50 mg FEEDTUBE Q12HR [facility] Lorazepam (Lorazepam 2 Mg/Ml Vial) 0.5 mg IM Q6H PRN PRN Reason: Anxiety Lorazepam (Lorazepam 2 Mg/Ml Vial) 1 mg IV Q4H PRN PRN Reason: Seizures Medroxyprogesterone Acetate (Medroxyprogesterone Acetate 150 Mg/Ml Syringe) 150 mg IM Q3M [facility] Midazolam HCl (Midazolam 2 Mg/2 Ml Inj) 2 mg IV Q6HR PRN PRN Reason: Seizures Miscellaneous Medication (Docusate Sodium [Diocto Oral Liq]) 15 ml PO BID [facility] Miscellaneous Medication (Ferrous Sulfate [Ferrous Sulfate Oral Liq 220 Mg/5 Ml]) 7.5 ml PO TID [facility] Miscellaneous Medication (Levetiracetam [Keppra Inj]) 20 ml PO BID [facility] Morphine Sulfate (Morphine 4 Mg/1 Ml Inj) 1 mg IV Q4H PRN PRN Reason: Pain , Severe (7-10) Ondansetron HCl (Ondansetron 4 Mg/2 Ml Inj) 4 mg IV Q8H PRN PRN Reason: Nausea And Vomiting Oxycodone/Acetaminophen (Oxycodone /Acetaminophen 5-325mg Tab) 1 tab PO Q6H PRN PRN Reason: Pain, Moderate (4-6) Polyethylene Glycol (Polyethylene Glycol 3350 17 Gm Powder) 17 gm PO BID [facility] Sodium Chloride (Sodium Chloride 0.9% 10 Ml Flush Syringe) 10 ml IV BID [facility] Sodium Chloride (Sodium Chloride 0.9% 10 Ml Flush Syringe) 10 ml IV PRN PRN PRN Reason: LINE FLUSH Sodium Chloride (Sodium Chloride 0.9% 10 Ml Flush Syringe) 10 ml IV BID [facility] Sodium Chloride (Sodium Chloride 0.9% 10 Ml Flush Syringe) 10 ml IV PRN PRN PRN Reason: LINE FLUSH Physical Examination - Vital Signs Vital Signs: Vital Signs Pulse Ox 96 11/03/21 03:16 Results - Laboratory Findings CBC and BMP: 11/03/21 04:09 11/03/21 04:09 Abnormal Lab Findings: Abnormal Labs 11/03/21 11/03/21 11/03/21 04:09 04:09 08:04 MCH 27 L [place] % (Auto) 13.5 H [place] # (Auto) 1.1 H Potassium 3.3 L Creatinine 0.5 L Total Creatine Kinase 152 H
[2021-11-03 13:24] LABS: RBC,Urine > 182.0 /HPF (0.0-6.0)
[2021-11-03 13:25] LABS: Bacteria,Urine 1+ /HPF (Negative)
[2021-11-03] MEDS ORDERED: medroxyPROGESTERone ACETATE 150 MG/ML SYRINGE IM SCH (14:00)
[2021-11-03] MEDS ORDERED: FERROUS SULFATE 220 MG/5 ML PO SCH (14:00)
[2021-11-03] MEDS ORDERED: [UNRECOGNIZED DRUG - OTHER] PO SCH (14:00)
--- NOTE | 2021-11-03 14:42 | Consultation ---
History of Present Illness Consult date: 11/03/21 Reason for Consult: Seizures Chief complaint: Seizures History of present illness: 36 yo female with epilepsy, cerbral palsy, dm, baseline quadriplegia who presents with multiple seizures. She is on keppra and dilantin as her outpatient AED regimen per hpi. Patient is non-verbal at baseline per RN. Past History Past Medical History: diabetes, seizures, other (History of cerebral palsy) Past Surgical History: No surgical history Social history: no significant social history Family history: no significant family history Medications and Allergies Allergies Allergy/AdvReac Type Severity Reaction Status Date / Time No Known Allergies Allergy Verified 07/06/21 18:48 Home Medications Medication Instructions Recorded Confirmed Last Taken Type Acetaminophen [Acetaminophen TAB] 650 mg PO BID 02/04/15 11/03/21 02/03/15 History Baclofen [Lioresal] 5 mg PO DAILY 02/04/15 11/03/21 02/03/15 History Ferrous Sulfate [Ferrous Sulfate 7.5 ml PO TID 02/04/15 11/03/21 02/03/15 History Oral Liq 220 Mg/5 Ml] Multivit-Minerals/Ferrous Fum 5 ml PO DAILY 02/04/15 11/03/21 02/03/15 History [Multivitamin Liquid] medroxyPROGESTERone ACETATE 150 mg IM Q3M 02/04/15 11/03/21 Unknown History [Depo-Provera (Contraception)] Docusate Sodium [Diocto ORAL LIQ] 15 ml PO BID 06/03/15 11/03/21 Unknown History LORazepam [Ativan INJ] 0.5 mg IM Q6H PRN #7 vial 02/20/18 11/03/21 Unknown Rx polyethylene glycoL 3350 [Miralax 17 gm PO BID powd.pack 02/20/18 11/03/21 Unknown Rx 3350] levETIRAcetam [Keppra INJ] 20 ml PO BID #60 solution 03/02/18 11/03/21 Unknown Rx Ciprofloxacin HCl [Ciprofloxacin 500 mg PO Q12HR 10 Days #20 tab 12/22/18 11/03/21 Unknown Rx TAB] Active Meds: Active Medications Acetaminophen (Acetaminophen 325 Mg Tab) 650 mg PO Q4H PRN PRN Reason: Pain MILD(1-3)/Fever >100.5/MCGEE Acetaminophen (Acetaminophen 325 Mg Tab) 650 mg PO BID [facility] Baclofen (Baclofen 10 Mg Tab) 5 mg PO DAILY [facility] Dextrose (Dextrose 50% In Water (25gm) 50 Ml Syringe) 50 ml IV Q30MIN PRN; Protocol PRN Reason: Hypoglycemia Docusate Sodium (Docusate Sodium 100 Mg/10 Ml Oral Liqd) 15 mg PO BID [facility] Ferrous Sulfate (Ferrous Sulfate 300 Mg (60mg Elemental Iron) / 5 Ml Oral Liqd) 220 mg PO QDAY [facility] Sodium Chloride (Nacl 0.9% 1000 Ml) 1,000 mls @ 75 mls/hr IV DIRECT [facility] Lacosamide (Lacosamide 50 Mg Tab) 50 mg FEEDTUBE Q12HR [facility] Levetiracetam (Levetiracetam 500 Mg Tab) 500 mg PO BID [facility] Lorazepam (Lorazepam 2 Mg/Ml Vial) 1 mg IV Q4H PRN PRN Reason: Seizures Midazolam HCl (Midazolam 2 Mg/2 Ml Inj) 2 mg IV Q6HR PRN PRN Reason: Seizures Morphine Sulfate (Morphine 4 Mg/1 Ml Inj) 1 mg IV Q4H PRN PRN Reason: Pain , Severe (7-10) Ondansetron HCl (Ondansetron 4 Mg/2 Ml Inj) 4 mg IV Q8H PRN PRN Reason: Nausea And Vomiting Oxycodone/Acetaminophen (Oxycodone /Acetaminophen 5-325mg Tab) 1 tab PO Q6H PRN PRN Reason: Pain, Moderate (4-6) Polyethylene Glycol (Polyethylene Glycol 3350 17 Gm Powder) 17 gm PO BID [facility] Sodium Chloride (Sodium Chloride 0.9% 10 Ml Flush Syringe) 10 ml IV BID [facility] Sodium Chloride (Sodium Chloride 0.9% 10 Ml Flush Syringe) 10 ml IV PRN PRN PRN Reason: LINE FLUSH Sodium Chloride (Sodium Chloride 0.9% 10 Ml Flush Syringe) 10 ml IV BID [facility] Sodium Chloride (Sodium Chloride 0.9% 10 Ml Flush Syringe) 10 ml IV PRN PRN PRN Reason: LINE FLUSH Review of Systems ROS unobtainable: due to mental status Physical Examination - Vital Signs Vital Signs: Vital Signs Pulse Ox 96 11/03/21 03:16 - Physical Exam Narrative exam: Gen: nad; Head: appears normocephalic; Eyes: no gaze deviation; ENT: no vocalization; CVS: warm and well-perfused; Pulm: no respiratory distress; GI: appears non-distended; Ext: no cyanosis appreciated at distal extremities; Skin: no acute rash or hives appreciated at distal extremities; Heme: no pathologic ecchymosis appreciated at distal extremities; Neuro: alert, mute, not following commands, CN 2 - reactive pupils, CN 3, 4, 6 - no gaze deviation, CN 5/7 - blinks spontaneously, CN 9/10 - swallowing not appreciated, CN 8/11/12 - pt cannot cooperate secondary to aphasia; Motor/Sensory - at least 1/5 at lower exts to tactile stimuli with increased tone; Cerebellar/Gait - pt cannot cooperate secondary to LOC; Results - Laboratory Findings CBC and BMP: 11/03/21 13:03 11/03/21 13:03 Abnormal Lab Findings: Abnormal Labs 11/03/21 11/03/21 11/03/21 04:09 04:09 08:04 MCH 27 L [place] % (Auto) 13.5 H [place] # (Auto) 1.1 H Potassium 3.3 L Creatinine 0.5 L Total Creatine Kinase 152 H Urine WBC (Auto) 11/03/21 10:25 MCH [place] % (Auto) [place] # (Auto) Potassium Creatinine Total Creatine Kinase Urine WBC (Auto) 25.0 H Assessment and Plan 36 yo female with epilepsy, cerbral palsy, dm, baseline quadriplegia who presents with multiple seizures. She is on keppra and dilantin as her outpatient AED regimen per hpi. 1. Seizure d/o - continue keppra 500 mg bid; initiate vimpat w/ bolus and then 50 mg bid; diazepam / ativan prn; aggressive treatment of underlying infectous / metabolic / electrolyte abnormalities by primary team; maintain eunatremia / eumagnesemia; seizure precautions / restricitons; eeg results pending; f/u w/ neurology in 1 week. 2. DM - maintain euglycemia. 3. UTI - evaluation / aggressive treatment per primary team. 4. Generalized Weakness - continue outpatient baclofen regimen. 5. Cerebral Palsy - underlying etiology of aphasia / generalized weakness / cognitive disability. Jeffery Paz MD Neurology [id number]
[2021-11-03] MEDS ORDERED: cefTRIAXone/NS 1 GM/50 ML 1 GM/50 ML BAG IV ONE (14:52)
[2021-11-03] MEDS: SODIUM CHLORIDE 0.9% 1000 ML 1,000 ML IV SCH (15:00)
[2021-11-03 15:19] LABS: Blood Urea Nitrogen 10 mg/dL (7-17); Calcium 9.5 mg/dL (8.4-10.2); Hemolysis Index 82
[2021-11-03 15:22] LABS: Basophils # (Auto) 0.1 K/mm3 (0.0-0.1); Eosinophils % (Auto) 0.3 % (0.0-4.3); Hematocrit 43.3 % (30.3-42.9); Hemoglobin 13.6 gm/dl (10.1-14.3); Lymphocytes # (Auto) 2.5 K/mm3 (1.2-5.4); Lymphocytes % (Auto) 22.3 % (13.4-35.0); Mean Corpuscular HGB Conc 31 % (30-34); Mean Corpuscular Volume 86 fl (79-97); Monocytes # (Auto) 1.1 K/mm3 (0.0-0.8); Monocytes % (Auto) 9.4 % (0.0-7.3); Red Blood Count 5.02 M/mm3 (3.65-5.03); Red Cell Distribution Width 15.5 % (13.2-15.2)
[2021-11-03 15:28] LABS: BUN/Creatinine Ratio 25
[2021-11-03] MEDS ORDERED: SIMPLE SYRUP 15 ML FEEDTUBE PRN ×2 (15:55)
[2021-11-03] MEDS ORDERED: SODIUM BICARBONATE 325 MG TAB FEEDTUBE PRN (15:55)
[2021-11-03] MEDS ORDERED: LIPASE 10,500/PROTEASE 25,000/AMYLASE 43,750 (UNITS) DR CAP FEEDTUBE PRN (15:55)
[2021-11-03 18:52] LABS: Platelet Count 257 K/mm3 (140-440)
[2021-11-03] MEDS ORDERED: LACOSAMIDE 100 MG in SODIUM CHLORIDE 0.9% 100 ML IV ONE (20:00)
[2021-11-03] MEDS: POLYETHYLENE GLYCOL 3350 17 GM POWDER PO SCH (21:22)
[2021-11-03] MEDS: levETIRAcetam 500 MG/5 ML ORAL LIQD FEEDTUBE SCH (21:22)
[2021-11-03] MEDS: ACETAMINOPHEN 325 MG TAB PO SCH (21:23)
[2021-11-03] MEDS: LACOSAMIDE 50 MG TAB FEEDTUBE SCH (21:24)
[2021-11-03] MEDS ORDERED: DOCUSATE SODIUM 100 MG/10 ML ORAL LIQD PO SCH (22:00)
[2021-11-04 04:46] LABS: Basophils # (Auto) 0.1 K/mm3 (0.0-0.1); Basophils % (Auto) 0.8 % (0.0-1.8); Eosinophils # (Auto) 0.1 K/mm3 (0.0-0.4); Eosinophils % (Auto) 1.1 % (0.0-4.3); Hemoglobin 13.3 gm/dl (10.1-14.3); Lymphocytes # (Auto) 2.4 K/mm3 (1.2-5.4); Lymphocytes % (Auto) 28.9 % (13.4-35.0); Mean Corpuscular HGB Conc 33 % (30-34); Mean Corpuscular Volume 84 fl (79-97); Monocytes # (Auto) 0.9 K/mm3 (0.0-0.8); Monocytes % (Auto) 11.2 % (0.0-7.3); Platelet Count 255 K/mm3 (140-440); Red Blood Count 4.88 M/mm3 (3.65-5.03)
[2021-11-04 04:56] LABS: Blood Urea Nitrogen 10 mg/dL (7-17); Calcium 9.2 mg/dL (8.4-10.2); Hemolysis Index 7
[2021-11-04 05:03] LABS: BUN/Creatinine Ratio 25
--- NOTE | 2021-11-04 09:19 | Progress Note ---
Assessment and Plan Status Epilepticus/Seizure Disorder Urinary Tract Infection(UTI) Cerebral Palsy with Functional Quadriplegic Oropharyngeal dysphagia -PEG-Tube Present Type 2 Diabetes Mellitus -Continue with AEDs, get EEG done -Keppra and Vimpat with prn benzodiazepines for breakthrough seizures -Aspiration precautions -Follow up urine cultures, trend temperature and WCC. - Seizure precautions -Continue with accuchecks and glycemic control. Target blood glucose 140- 180mg/dL. Avoid hypoglycemia -Nutritional support with tube feeding -Replace electrolytes as clinically indicated -Maintain sleep-wake cycle -Mobility, off loading, frequent turning per facility protocol to prevent pressure ulcers - If seizures persist possible transfer to a tertiary facility for continuous EEG monitoring The high probability of a clinically significant, sudden or life threatening deterioration of the system(s) required my full and direct attention, intervent ion and personal management. The aggregate critical care time was [32] minutes. This time is in addition to time spent performing reported procedures but includes the following: [x] Data Review and interpretation [x] Patient assessment and monitoring of vital signs [x] Documentation [x] Medication orders and management Subjective Date of service: 11/04/21 Interval history: PULMONARY CONSULT NOTE 36-year-old female with significant past medical history of seizure disorder and cerebral palsy who at baseline is a functional quadriplegic and nonverbal presents with to the emergency department with a chief complaint of seizures. Patient is [facility] assisted resident and has had previous admissions over the past few years for seizure disorder. Patient was admitted to the ICU for recurrent seizures. Patient seen and examined. Vitals, labs, medications, chart reviewed. Discussed with nursing care staff, she had multiple seizures overnight. Past History Past Medical History: diabetes, seizures, other (History of cerebral palsy) Past Surgical History: No surgical history Social history: no significant social history Family history: no significant family history Medications and Allergies Allergies Allergy/AdvReac Type Severity Reaction Status Date / Time No Known Allergies Allergy Verified 07/06/21 18:48 Home Medications Medication Instructions Recorded Confirmed Last Taken Type Acetaminophen [Acetaminophen TAB] 650 mg PO BID 02/04/15 03/02/18 02/03/15 History Baclofen [Lioresal] 5 mg PO DAILY 02/04/15 03/02/18 02/03/15 History Ferrous Sulfate [Ferrous Sulfate 7.5 ml PO TID 02/04/15 03/02/18 02/03/15 History Oral Liq 220 Mg/5 Ml] Multivit-Minerals/Ferrous Fum 5 ml PO DAILY 02/04/15 03/02/18 02/03/15 History [Multivitamin Liquid] medroxyPROGESTERone ACETATE 150 mg IM Q3M 02/04/15 03/02/18 Unknown History [Depo-Provera (Contraception)] Docusate Sodium [Diocto ORAL LIQ] 15 ml PO BID 06/03/15 03/02/18 Unknown History LORazepam [Ativan INJ] 0.5 mg IM Q6H PRN #7 vial 02/20/18 03/02/18 Unknown Rx polyethylene glycoL 3350 [Miralax 17 gm PO BID powd.pack 02/20/18 03/02/18 Unknown Rx 3350] levETIRAcetam [Keppra INJ] 20 ml PO BID #60 solution 03/02/18 Unknown Rx Ciprofloxacin HCl [Ciprofloxacin 500 mg PO Q12HR 10 Days #20 tab 12/22/18 Unkno wn Rx TAB] Active Meds: Active Medications Midazolam HCl (Midazolam 2 Mg/2 Ml Inj) 2 mg IV Q6HR PRN PRN Reason: Seizures Review of Systems ROS unobtainable: due to mental status Objective - Exam Narrative Exam: - Constitutional Vitals: Temp Pulse Resp BP Pulse Ox 98.8 F 115 H 17 111/75 96 11/03/21 03:19 11/03/21 12:16 11/03/21 12:16 11/03/21 12:16 11/03/21 12:16 General appearance: Present: no distress, well-nourished - EENT Eyes: Present: PERRL - Neck Neck: Present: No JVD - Respiratory Respiratory effort: normal Respiratory: bilateral: diminished, CTA - Cardiovascular Heart Sounds: Present: S1 & S2. Absent: rub, click - Extremities Extremities: pulses symmetrical, No edema Peripheral Pulses: within normal limits - Abdominal General gastrointestinal: Present: soft, non-tender, non-distended, normal bowel sounds PEG in place Female genitourinary: Present: normal external genitalia - Integumentary Integumentary: Present: clear, warm, dry - Musculoskeletal Musculoskeletal: lower extremity contracture, no edema, no cyanosis - Psychiatric Psychiatric: Unable to assess - Neurologic Neurologic: other (Functional quadriplegic, nonverbal, does not follow command) Awake, alert, tracks voice Vital Signs - 12hr 11/03/21 11/03/21 11/03/21 22:00 22:48 23:00 Temperature Pulse Rate 103 H 101 H 102 H Respiratory 16 15 16 Rate Blood Pressure 133/93 133/93 126/90 O2 Sat by Pulse 80 L 99 98 Oximetry 11/04/21 11/04/21 11/04/21 00:00 01:00 02:00 Temperature 99.1 F Pulse Rate 107 H 105 H 100 H Respiratory 18 16 19 Rate Blood Pressure 138/86 115/76 124/92 O2 Sat by Pulse 100 98 Oximetry 11/04/21 11/04/21 11/04/21 03:00 04:00 05:00 Temperature 98.7 F Pulse Rate 108 H 106 H 103 H Respiratory 17 17 15 Rate Blood Pressure 120/86 121/93 124/91 O2 Sat by Pulse 98 97 99 Oximetry 11/04/21 11/04/21 11/04/21 06:00 07:00 08:00 Temperature 99.1 F Pulse Rate 109 H 104 H 106 H Respiratory 14 15 22 Rate Blood Pressure 126/90 124/83 121/79 O2 Sat by Pulse 100 99 Oximetry CBC and BMP: 11/05/21 04:05 11/05/21 04:05 Abnormal lab findings: Abnormal Labs 11/03/21 11/03/21 11/03/21 04:09 04:09 08:04 WBC Hct MCH 27 L RDW [place] % (Auto) 13.5 H [place] # (Auto) 1.1 H Potassium 3.3 L Creatinine 0.5 L Total Creatine Kinase 152 H Urine WBC (Auto) 11/03/21 11/03/21 11/03/21 10:25 13:03 13:03 WBC 11.3 H Hct 43.3 H MCH 27 L RDW 15.5 H [place] % (Auto) 9.4 H [place] # (Auto) 1.1 H Potassium Creatinine 0.4 L Total Creatine Kinase Urine WBC (Auto) 25.0 H 11/04/21 11/04/21 04:22 04:22 WBC Hct MCH 27 L RDW [place] % (Auto) 11.2 H [place] # (Auto) 0.9 H Potassium Creatinine 0.4 L Total Creatine Kinase Urine WBC (Auto) Chest x-ray: image reviewed (Low lung volumes)
[2021-11-04] MEDS: POLYETHYLENE GLYCOL 3350 17 GM POWDER PO SCH ×2 (09:32→21:14)
[2021-11-04] MEDS: DOCUSATE SODIUM 100 MG/10 ML ORAL LIQD FEEDTUBE SCH ×2 (09:32→21:14)
[2021-11-04] MEDS: LACOSAMIDE 50 MG TAB FEEDTUBE SCH ×2 (09:32→21:14)
[2021-11-04] MEDS: SODIUM CHLORIDE 0.9% 1000 ML 1,000 ML IV SCH (09:32)
[2021-11-04] MEDS: levETIRAcetam 500 MG/5 ML ORAL LIQD FEEDTUBE SCH ×2 (09:33→21:14)
[2021-11-04] MEDS: BACLOFEN 10 MG TAB PO SCH (09:33)
[2021-11-04] MEDS: ACETAMINOPHEN 325 MG TAB PO SCH (09:34)
--- NOTE | 2021-11-04 11:18 | Progress Note ---
<CARL STEPHENSON - Last Filed: 11/04/21 18:22> Assessment and Plan Assessment and plan: This is a 36-year-old female with known past medical history of DM, seizure disorder, and cerebral palsy who at baseline is a functional quadriplegic and nonverbal admitted for seizures Hospital Course to Date: 11/03/2021. Patient will be admitted to [facility] for closer monitoring. Patient has received Keppra IV and IV Dilantin without relief at this time. I consulted teleneurology with Dr. Balderas who recommended adding Vimpat. We will continue with Ativan for breakthrough seizures. Patient's baseline is functional quadriplegic and nonverbal. However, additionally she may have concomitant postictal state as well. Consult neurology with Dr. Paz. If seizures do not mary, patient may need to be transferred to tertiary facility for continuous EEG monitoring. We will order spot EEG for now. Continue seizure precautions. No infectious etiology at present. Urinalysis negative and chest x-ray negative. I do not suspect noncompliance given that the patient is a resident of a correction and I do believe she is getting medications properly. Home medication is Keppra 1000 mg in the morning and 500 mg in the evening. Continue TF for nutrition, consult dietitian. 11/04: Multiple seizures like activities overnight treated with IV Ativan, none reported this am. EEG pending. Neurology recommendations noted, continue current AED per Neuro and PRN Ativan for seizure like activities. Patient remains afebrile, VSS. Received X1 dose of IV rocephin for UTI, urine culture pending. D/W CCM if seizures persist possible transfer to a tertiary facility for continuous EEG, will continue to monitor. Assessment and Plan #Status Epilepticus/Seizure Disorder - Presented with multiple seizures approximately 15 minutes apart with each seizure lasting approximately 2 minutes - Received Keppra load and Dilantin in the ED - CT head with no acute intracranial abnormality - Neurology consulted, appreciate recommendations - Continue AED- Keppra and Vimpat per Neuro - EEG pending - PRN Ativan for seizures like-activities - Aspiration precaution - Seizure precaution - CCM is also following - D/W CCM if seizures persist possible transfer to a tertiary facility for continuous EEG, will continue to monitor #Urinary Tract Infection(UTI) - UA with mild elevated WBCs - X1 dose of IV Rocephin administered in the ED - Patient remains afebrile, with no leukocytosis, VSS - Urine culture pending - Continue to F/u on culture result - Trend CBC #Cerebral Palsy #Functional Quadriplegic - Chronic. Nonverbal at baseline - Continue supportive measures - Home meds resumed #Oropharyngeal dysphagia #PEG-Tube Present - Nutrition consult - Enteral nutrition initiated #Type 2 Diabetes Mellitus - currently stable - BG check Q6hrs - Initiate SSI if hyperglycemic - Avoid Hypoglycemia #GI/DVT Prophylaxis - PPI- Pepcid - Lovenix SubQ - SCDs to bilateral lower extremities while in bed The high probability of a clinically significant, sudden or life threatening deterioration of the [multiple] system(s) required my full and direct attention, intervention and personal management. The aggregate critical care time was [60] minutes. This time is in addition to time spent performing reported procedures but includes the following: [x] Data Review and interpretation [x] Patient assessment and monitoring of vital signs [x] Documentation [x] Medication orders and management Disposition Plan: ICU Total Time Spent with Patient (Minutes): 60 History Interval history: Patient seen and examined at the bedside. Awake, but nonverbal and responsive. Stable on RA, no respiratory distress noted, VSS. Per RN multiple seizures like activities overnight, PRN ativan administered. No Seizures reported this am. Hospitalist Physical - Constitutional Vitals: Temp Pulse Resp BP Pulse Ox 99.1 F 102 H 17 130/89 98 11/04/21 08:00 11/04/21 10:00 11/04/21 10:00 11/04/21 10:00 11/04/21 10:00 General appearance: Present: no acute distress, well-nourished, obese - EENT Eyes: Present: PERRL - Respiratory Respiratory effort: normal Respiratory: bilateral: diminished - Cardiovascular Rhythm: regular Heart Sounds: Present: S1 & S2 - Extremities Extremities: no ischemia, pulses intact, pulses symmetrical Extremity abnormal: edema - Peripheral Assessment Generalized Edema Type: Non-pitting Edema Degree: 1+ Capillary Refill: < 3 seconds Skin Temperature: Warm Peripheral Pulses: within normal limits - Abdominal General gastrointestinal: soft, non-distended, normal bowel sounds, other (PEG- Tube Present) - Integumentary Integumentary: Present: clear, warm, dry - Psychiatric Psychiatric: other (awake but nonverbal and unresponsive) - Neurologic Neurologic: moves all extremities (Non-purposeful ), other (awake but nonverbal and unresponsive) - Allied Health Allied health notes reviewed: nursing, case management Results - Labs CBC & Chem 7: 11/04/21 04:22 11/04/21 04:22 Labs: Laboratory Last Values WBC 8.2 K/mm3 (4.5-11.0) 11/04/21 04:22 RBC 4.88 M/mm3 (3.65-5.03) 11/04/21 04:22 Hgb 13.3 gm/dl (10.1-14.3) 11/04/21 04:22 Hct 41.0 % (30.3-42.9) 11/04/21 04:22 MCV 84 fl (79-97) 11/04/21 04:22 MCH 27 pg (28-32) L 11/04/21 04:22 MCHC 33 % (30-34) 11/04/21 04:22 RDW 15.0 % (13.2-15.2) 11/04/21 04:22 Plt Count 255 K/mm3 (140-440) 11/04/21 04:22 Lymph % (Auto) 28.9 % (13.4-35.0) 11/04/21 04:22 [place] % (Auto) 11.2 % (0.0-7.3) H 11/04/21 04:22 Eos % (Auto) 1.1 % (0.0-4.3) 11/04/21 04:22 Baso % (Auto) 0.8 % (0.0-1.8) 11/04/21 04:22 Lymph # (Auto) 2.4 K/mm3 (1.2-5.4) 11/04/21 04:22 [place] # (Auto) 0.9 K/mm3 (0.0-0.8) H 11/04/21 04:22 Eos # (Auto) 0.1 K/mm3 (0.0-0.4) 11/04/21 04:22 Baso # (Auto) 0.1 K/mm3 (0.0-0.1) 11/04/21 04:22 Seg Neutrophils % 58.0 % (40.0-70.0) 11/04/21 04:22 Seg Neutrophils # 4.7 K/mm3 (1.8-7.7) 11/04/21 04:22 Sodium 144 mmol/L (137-145) 11/04/21 04:22 Potassium 3.6 mmol/L (3.6-5.0) 11/04/21 04:22 Chloride 104.6 mmol/L (98-107) 11/04/21 04:22 Carbon Dioxide 24 mmol/L (22-30) 11/04/21 04:22 Anion Gap 19 mmol/L 11/04/21 04:22 BUN 10 mg/dL (7-17) 11/04/21 04:22 Creatinine 0.4 mg/dL (0.6-1.2) L 11/04/21 04:22 Estimated GFR > 60 ml/min 11/04/21 04:22 BUN/Creatinine Ratio 25 % 11/04/21 04:22 Glucose 89 mg/dL (65-100) 11/04/21 04:22 POC Glucose 88 mg/dL (70-105) 11/04/21 06:03 Calcium 9.2 mg/dL (8.4-10.2) 11/04/21 04:22 Magnesium 2.30 mg/dL (1.7-2.3) 11/03/21 04:09 Total Creatine Kinase 152 units/L (30-135) H 11/03/21 08:04 HCG, Qual Negative (Negative) 11/03/21 04:09 Urine Color Yellow (Yellow) 11/03/21 10:25 Urine Turbidity Clear (Clear) 11/03/21 10:25 Urine pH 6.0 (5.0-7.0) 11/03/21 10:25 Ur Specific [place] 1.015 (1.003-1.030) 11/03/21 10:25 Urine Protein 100 mg/dl mg/dL (Negative) 11/03/21 10:25 Urine Glucose (UA) Negative mg/dL (Negative) 11/03/21 10:25 Urine Ketones 1+ mg/dL (Negative) 11/03/21 10:25 Urine Blood 3+ (Negative) 11/03/21 10:25 Urine Nitrite Negative (Negative) 11/03/21 10:25 Urine Bilirubin Negative (Negative) 11/03/21 10:25 Urine Urobilinogen 0.0 mg/dL (<2.0) 11/03/21 10:25 Ur Leukocyte Esterase 1+ (Negative) 11/03/21 10:25 Urine WBC (Auto) 25.0 /HPF (0.0-6.0) H 11/03/21 10:25 Urine RBC (Auto) > 182.0 /HPF (0.0-6.0) 11/03/21 10:25 U Epithel Cells (Auto) 7.0 /HPF (0-13.0) 11/03/21 10:25 Urine Bacteria (Auto) 1+ /HPF (Negative) 11/03/21 10:25 Marks/IV: Voiding Method External Female Catheter Active Medications - Current Medications Current Medications: Generic Name Dose Route Start Last Admin Trade Name Freq PRN Reason Stop Dose Admin Acetaminophen 650 mg 11/03/21 13:03 Acetaminophen 325 Mg Tab PO Q4H PRN Pain MILD(1-3)/Fever >100.5/MCGEE Lipase/Protease/Amylase 1 each 11/03/21 15:55 Lipase 10,500/Protease 25,000/Amylase 43,750 (Units) Dr Mills FEEDTUBE PRN PRN For Clogged Feeding Tube Baclofen 5 mg 11/04/21 10:00 11/04/21 09:33 Baclofen 10 Mg Tab PO 5 mg DAILY SINAN Administration Dextrose 50 ml 11/03/21 13:03 Dextrose 50% In Water (25gm) 50 Ml Syringe IV Q30MIN PRN Hypoglycemia Protocol Docusate Sodium 100 mg 11/04/21 10:00 11/04/21 09:32 Docusate Sodium 100 Mg/10 Ml Oral Liqd FEEDTUBE 100 mg BID SINAN Administration Ferrous Sulfate 220 mg 11/04/21 10:00 Ferrous Sulfate 300 Mg (60mg Elemental Iron) / 5 Ml Oral Liqd PO QDAY SINAN Lacosamide 50 mg 11/03/21 22:00 11/04/21 09:32 Lacosamide 50 Mg Tab FEEDTUBE 50 mg Q12HR SINAN Administration Levetiracetam 500 mg 11/03/21 22:00 11/04/21 09:33 Levetiracetam 500 Mg/5 Ml Oral Liqd FEEDTUBE 500 mg BID SINAN Administration Lorazepam 1 mg 11/03/21 13:14 Lorazepam 2 Mg/Ml Vial IV Q4H PRN Seizures Midazolam HCl 2 mg 11/03/21 09:16 11/03/21 14:55 Midazolam 2 Mg/2 Ml Inj IV 2 mg Q6HR PRN Administration Seizures Morphine Sulfate 1 mg 11/03/21 13:03 Morphine 4 Mg/1 Ml Inj IV Q4H PRN Pain , Severe (7-10) Ondansetron HCl 4 mg 11/03/21 13:03 Ondansetron 4 Mg/2 Ml Inj IV Q8H PRN Nausea And Vomiting Oxycodone/Acetaminophen 1 tab 11/03/21 13:03 Oxycodone /Acetaminophen 5-325mg Tab PO Q6H PRN Pain, Moderate (4-6) Polyethylene Glycol 17 gm 11/03/21 22:00 11/04/21 09:32 Polyethylene Glycol 3350 17 Gm Powder PO 17 gm BID SINAN Administration Simple Syrup 15 ml 11/03/21 15:55 Simple Syrup 15 Ml FEEDTUBE PRN PRN Hypoglycemia Simple Syrup 30 ml 11/03/21 15:55 Simple Syrup 15 Ml FEEDTUBE PRN PRN Hypoglycemia Sodium Bicarbonate 325 mg 11/03/21 15:55 Sodium Bicarbonate 325 Mg Tab FEEDTUBE PRN PRN For Clogged Feeding Tube Sodium Chloride 10 ml 11/03/21 22:00 11/04/21 09:33 Sodium Chloride 0.9% 10 Ml Flush Syringe IV 10 ml BID SINAN Administration Sodium Chloride 10 ml 11/03/21 13:03 Sodium Chloride 0.9% 10 Ml Flush Syringe IV PRN PRN LINE FLUSH Nutrition/Malnutrition Assess - Dietary Evaluation Nutrition/Malnutrition Findings: Nutrition Notes Start: 11/03/21 15:24 Freq: Status: Active Protocol: Document 11/03/21 15:24 MARY (Rec: 11/03/21 15:57 MARY [id number]) Nutrition Notes Need for Assessment generated from: MD Order Initial or Follow up Assessment Current Diagnosis Diabetes Other Pertinent Diagnosis Seizure, Oropharyngeal Dysphagia, Cerebral Palsy, Quadriplegia. Current Diet NPO (since 11/03 13:05), TF- Glucerna 1.2 Jorge @ 40 ml/hr ( from D 11/03). Labs/Tests 11/03: K 3.3, Crea 0.5. Pertinent Medications 11/03: FeSO4, others nutritionally unremarkable. Height 5 ft Weight 60.1 kg [place] Body Weight (kg) 45.45 BMI 25.9 Weight change and time frame None provided at admision. Weight Status Overweight Subjective/Other Information RD consult for write/manage TF Pt is on NPO, and has a PEG- tube in place poa. Pt is on Room Air, O2 saturation @ 96%, according to physical Assessment History notes. I will prescribe TF to provide Pt with energy/protein needs during LOS. Pt is a SNF resident, according to History & Physical notes. Percent of energy/protein needs met: Pt is NPO. Prescribed TF-Glucerna 1.2 Jorge @ 40 ml/hr provides for energy/protein needs (1,140 Kcal/57 g) during LOS, 105% Kcal; 100% AA. Burn Absent Trauma Absent GI Symptoms Other Difficulty In Swallowing Food Allergy No Skin Integrity/Comment Assessment WNL. Current % PO Other Minimum of two criteria No Fluid Accumulation N/A Reduced [employer] Strength N/A (non-severe) Protein-Calorie Malnutrition N\A #1 Nutrition Diagnosis Inadequate oral intake Etiology Possibly Cerebral Palsy. As Evidenced by Signs and Symptoms Oropharingeal Disphagia. Is patient on ventilator? No Is Patient Ambulatory and/or Out of Bed No REE-([facility]-confined to bed) 1463.640 Kcal/Kg value to use for calculation 18 Approximate Energy Requirements Using 1082 kcal/Kg Calculation Used for Recommendations Kcal/kg Additional Notes Protein: 0.8-1 g/Kg ABW; 48-60 g/day. Fluids: 1 ml/Kcal, or as per MD. Nutrition Intervention Nutrition Support: Start TF-Glucerna 1.2 Jorge @ 40 ml/hr. Flush: 50 ml water Q 4 hr, or as per MD. Kcal 1,140 Protein (gm) 57 Carbohydrates (gm) 109 Fat (gm) 57 Fluid (mL) 765 Fiber (gm) 15 % RDI: 105% Kcal; 100% AA. Goal #1 Provide at least 75% of energy /protein needs through Enteral Feeding during LOS. Follow-Up By: 11/05/21 Additional Comments Start monitoring TF tolerance and BM. <MEGAN ALVAREZ - Last Filed: 11/05/21 07:31> Assessment and Plan Assessment and plan: I saw and evaluated the patient. I agree with the findings and the plan of care as documented in the Nurse Practitioner's~note, with the following corrections and additions. Hospitalist Physical - Constitutional Vitals: Temp Pulse Resp BP Pulse Ox 99.7 F H 97 H 16 127/92 100 11/05/21 04:00 11/05/21 06:00 11/05/21 06:00 11/05/21 06:00 11/05/21 06:00 Results - Labs CBC & Chem 7: 11/05/21 04:05 11/05/21 04:05 Labs: Laboratory Last Values WBC 6.4 K/mm3 (4.5-11.0) 11/05/21 04:05 RBC 4.61 M/mm3 (3.65-5.03) 11/05/21 04:05 Hgb 12.8 gm/dl (10.1-14.3) 11/05/21 04:05 Hct 38.9 % (30.3-42.9) 11/05/21 04:05 MCV 84 fl (79-97) 11/05/21 04:05 MCH 28 pg (28-32) 11/05/21 04:05 MCHC 33 % (30-34) 11/05/21 04:05 RDW 15.0 % (13.2-15.2) 11/05/21 04:05 Plt Count 244 K/mm3 (140-440) 11/05/21 04:05 Lymph % (Auto) 28.9 % (13.4-35.0) 11/04/21 04:22 [place] % (Auto) 11.2 % (0.0-7.3) H 11/04/21 04:22 Eos % (Auto) 1.1 % (0.0-4.3) 11/04/21 04:22 Baso % (Auto) 0.8 % (0.0-1.8) 11/04/21 04:22 Lymph # (Auto) 2.4 K/mm3 (1.2-5.4) 11/04/21 04:22 [place] # (Auto) 0.9 K/mm3 (0.0-0.8) H 11/04/21 04:22 Eos # (Auto) 0.1 K/mm3 (0.0-0.4) 11/04/21 04:22 Baso # (Auto) 0.1 K/mm3 (0.0-0.1) 11/04/21 04:22 Seg Neutrophils % 58.0 % (40.0-70.0) 11/04/21 04:22 Seg Neutrophils # 4.7 K/mm3 (1.8-7.7) 11/04/21 04:22 Sodium 143 mmol/L (137-145) 11/05/21 04:05 Potassium 4.7 mmol/L (3.6-5.0) D 11/05/21 04:05 Chloride 108.4 mmol/L (98-107) H 11/05/21 04:05 Carbon Dioxide 21 mmol/L (22-30) L 11/05/21 04:05 Anion Gap 18 mmol/L 11/05/21 04:05 BUN 7 mg/dL (7-17) 11/05/21 04:05 Creatinine 0.4 mg/dL (0.6-1.2) L 11/05/21 04:05 Estimated GFR > 60 ml/min 11/05/21 04:05 BUN/Creatinine Ratio 18 % 11/05/21 04:05 Glucose 80 mg/dL (65-100) 11/05/21 04:05 POC Glucose 91 mg/dL (70-105) 11/05/21 06:05 Calcium 9.2 mg/dL (8.4-10.2) 11/05/21 04:05 Magnesium 2.30 mg/dL (1.7-2.3) 11/03/21 04:09 Total Creatine Kinase 152 units/L (30-135) H 11/03/21 08:04 Procalcitonin < 0.05 ng/mL (<0.15) 11/04/21 12:14 HCG, Qual Negative (Negative) 11/03/21 04:09 Urine Color Yellow (Yellow) 11/03/21 10:25 Urine Turbidity Clear (Clear) 11/03/21 10:25 Urine pH 6.0 (5.0-7.0) 11/03/21 10:25 Ur Specific [place] 1.015 (1.003-1.030) 11/03/21 10:25 Urine Protein 100 mg/dl mg/dL (Negative) 11/03/21 10:25 Urine Glucose (UA) Negative mg/dL (Negative) 11/03/21 10:25 Urine Ketones 1+ mg/dL (Negative) 11/03/21 10:25 Urine Blood 3+ (Negative) 11/03/21 10:25 Urine Nitrite Negative (Negative) 11/03/21 10:25 Urine Bilirubin Negative (Negative) 11/03/21 10:25 Urine Urobilinogen 0.0 mg/dL (<2.0) 11/03/21 10:25 Ur Leukocyte Esterase 1+ (Negative) 11/03/21 10:25 Urine WBC (Auto) 25.0 /HPF (0.0-6.0) H 11/03/21 10:25 Urine RBC (Auto) > 182.0 /HPF (0.0-6.0) 11/03/21 10:25 U Epithel Cells (Auto) 7.0 /HPF (0-13.0) 11/03/21 10:25 Urine Bacteria (Auto) 1+ /HPF (Negative) 11/03/21 10:25 Microbiology: Microbiology 11/03/21 10:25 Urine,Catheterized - Straight Catheter Urine Culture - Preliminary Marks/IV: Voiding Method External Female Catheter Active Medications - Current Medications Current Medications: Generic Name Dose Route Start Last Admin Trade Name Freq PRN Reason Stop Dose Admin Acetaminophen 650 mg 11/03/21 13:03 Acetaminophen 325 Mg Tab PO Q4H PRN Pain MILD(1-3)/Fever >100.5/MCGEE Lipase/Protease/Amylase 1 each 11/03/21 15:55 Lipase 10,500/Protease 25,000/Amylase 43,750 (Units) Dr Mills FEEDTUBE PRN PRN For Clogged Feeding Tube Baclofen 5 mg 11/04/21 10:00 11/04/21 09:33 Baclofen 10 Mg Tab PO 5 mg DAILY SINAN Administration Dextrose 50 ml 11/03/21 13:03 Dextrose 50% In Water (25gm) 50 Ml Syringe IV Q30MIN PRN Hypoglycemia Protocol Docusate Sodium 100 mg 11/04/21 10:00 11/04/21 21:14 Docusate Sodium 100 Mg/10 Ml Oral Liqd FEEDTUBE 100 mg BID SINAN Administration Enoxaparin Sodium 40 mg 11/04/21 22:00 11/04/21 21:14 Enoxaparin 40 Mg/0.4 Ml Inj SUB-Q 40 mg QHS SINAN Administration Protocol Famotidine 10 mg 11/04/21 22:00 11/04/21 21:14 Famotidine 10 Mg Tab FEEDTUBE 10 mg BID SINAN Administration Ferrous Sulfate 220 mg 11/04/21 10:00 11/04/21 14:25 Ferrous Sulfate 300 Mg (60mg Elemental Iron) / 5 Ml Oral Liqd PO 220 mg QDAY SINAN Administration Lacosamide 50 mg 11/03/21 22:00 11/04/21 21:14 Lacosamide 50 Mg Tab FEEDTUBE 50 mg Q12HR SINAN Administration Levetiracetam 500 mg 11/03/21 22:00 11/04/21 21:14 Levetiracetam 500 Mg/5 Ml Oral Liqd FEEDTUBE 500 mg BID SINAN Administration Lorazepam 1 mg 11/03/21 13:14 Lorazepam 2 Mg/Ml Vial IV Q4H PRN Seizures Midazolam HCl 2 mg 11/03/21 09:16 11/03/21 14:55 Midazolam 2 Mg/2 Ml Inj IV 2 mg Q6HR PRN Administration Seizures Morphine Sulfate 1 mg 11/03/21 13:03 Morphine 4 Mg/1 Ml Inj IV Q4H PRN Pain , Severe (7-10) Ondansetron HCl 4 mg 11/03/21 13:03 Ondansetron 4 Mg/2 Ml Inj IV Q8H PRN Nausea And Vomiting Oxycodone/Acetaminophen 1 tab 11/03/21 13:03 Oxycodone /Acetaminophen 5-325mg Tab PO Q6H PRN Pain, Moderate (4-6) Polyethylene Glycol 17 gm 11/03/21 22:00 11/04/21 21:14 Polyethylene Glycol 3350 17 Gm Powder PO 17 gm BID SINAN Administration Simple Syrup 15 ml 11/03/21 15:55 Simple Syrup 15 Ml FEEDTUBE PRN PRN Hypoglycemia Simple Syrup 30 ml 11/03/21 15:55 Simple Syrup 15 Ml FEEDTUBE PRN PRN Hypoglycemia Sodium Bicarbonate 325 mg 11/03/21 15:55 Sodium Bicarbonate 325 Mg Tab FEEDTUBE PRN PRN For Clogged Feeding Tube Sodium Chloride 10 ml 11/03/21 22:00 11/04/21 21:49 Sodium Chloride 0.9% 10 Ml Flush Syringe IV 10 ml BID SINAN Administration Sodium Chloride 10 ml 11/03/21 13:03 Sodium Chloride 0.9% 10 Ml Flush Syringe IV PRN PRN LINE FLUSH Nutrition/Malnutrition Assess - Dietary Evaluation Nutrition/Malnutrition Findings: Nutrition Notes Start: 11/03/21 15:24 Freq: Status: Active Protocol: Document 11/04/21 13:25 MARY (Rec: 11/04/21 13:36 MARY [id number]) Nutrition Notes Initial or Follow up Brief Note Current Diagnosis Diabetes Other Pertinent Diagnosis Seizure, Oropharyngeal Dysphagia, Cerebral Palsy, Quadriplegia. Current Diet TF-Glucerna 1.2 Jorge @ 40 ml/hr (from D 11/03). Height 5 ft Weight 64 kg [place] Body Weight (kg) 45.45 BMI 27.5 Weight change and time frame 3.9 Kg body weight gain in 1 day reported. Weight Status Overweight Subjective/Other Information RD consult for difficulty chewing and skin risk assessments. TF continues as prescribed, no further information available at the time, will assess at F /U. Pt is on Room Air, O2 saturation @ 98%, according to physical Assessment History notes. Pt shows no signs of concern for skin risk at the time, according to physical Assessment History notes. Pt is receiving TF and no concerns for difficulty chewing have arised at the time, I will disregard this consult. Percent of energy/protein needs met: Prescribed TF-Glucerna 1.2 Jorge @ 40 ml/hr provides for energy/protein needs (1,140 Kcal/57 g) during LOS, 105% Kcal; 100% AA. #1 Nutrition Diagnosis Inadequate oral intake Diagnosis Progress(for reassessment Continues documentation) Is patient on ventilator? No Is Patient Ambulatory and/or Out of Bed No REE-([facility]confined to bed) 1510.392 Kcal/Kg value to use for calculation 17 Approximate Energy Requirements Using 1088 kcal/Kg Calculation Used for Recommendations Kcal/kg Additional Notes Protein: 0.8-1 g/Kg ABW; 48-60 g/day. Fluids: 1 ml/Kcal, or as per MD. Nutrition Intervention Nutrition Support: Continue TF-Glucerna 1.2 Jorge @ 40 ml/hr. Flush: 50 ml water Q 4 hr, or as per MD. Kcal 1,140 Protein (gm) 57 Carbohydrates (gm) 109 Fat (gm) 57 Fluid (mL) 765 Fiber (gm) 15 % RDI: 105% Kcal; 100% AA. Goal #1 Provide at least 75% of energy /protein needs through Enteral Feeding during LOS. Follow-Up By: 11/11/21 Additional Comments Continue monitoring TF tolerance and BM.
[2021-11-04] MEDS: FERROUS SULFATE 300 MG (60MG Elemental Iron) / 5 mL ORAL LIQD PO SCH (14:25)
[2021-11-04] MEDS: FAMOTIDINE 10 MG TAB FEEDTUBE SCH (21:14)
[2021-11-04] MEDS ORDERED: ENOXAPARIN 40 MG/0.4 ML INJ SUB-Q SCH (22:00)
[2021-11-05 06:25] LABS: Hematocrit 38.9 % (30.3-42.9); Hemoglobin 12.8 gm/dl (10.1-14.3); Mean Corpuscular HGB Conc 33 % (30-34); Mean Corpuscular Volume 84 fl (79-97); Platelet Count 244 K/mm3 (140-440); Red Blood Count 4.61 M/mm3 (3.65-5.03)
[2021-11-05 06:35] LABS: Blood Urea Nitrogen 7 mg/dL (7-17); Calcium 9.2 mg/dL (8.4-10.2); Hemolysis Index 191
[2021-11-05 06:36] LABS: BUN/Creatinine Ratio 18
[2021-11-05] MEDS: FAMOTIDINE 10 MG TAB FEEDTUBE SCH (09:47)
[2021-11-05] MEDS: POLYETHYLENE GLYCOL 3350 17 GM POWDER PO SCH (09:47)
[2021-11-05] MEDS: DOCUSATE SODIUM 100 MG/10 ML ORAL LIQD FEEDTUBE SCH (09:47)
[2021-11-05] MEDS: LACOSAMIDE 50 MG TAB FEEDTUBE SCH (09:48)
[2021-11-05] MEDS: BACLOFEN 10 MG TAB PO SCH (09:48)
[2021-11-05] MEDS: levETIRAcetam 500 MG/5 ML ORAL LIQD FEEDTUBE SCH (09:48)
[2021-11-05] MEDS: FERROUS SULFATE 300 MG (60MG Elemental Iron) / 5 mL ORAL LIQD PO SCH (10:24)
--- NOTE | 2021-11-05 11:36 | Progress Note ---
Assessment and Plan Status Epilepticus/Seizure Disorder Urinary Tract Infection Cerebral Palsy Functional Quadriplegia Oropharyngeal dysphagia s/p PEG Type 2 Diabetes Mellitus - follow EEG report - continue Keppra and Vimpat as AED's - prn benzodiazepines for breakthrough seizures - Aspiration precautions - f/up urine cultures, trend temperature and WCC - prn supplemental oxygen to keep O2 sats > 90% - avoid nephrotoxins, renally dose all medications - continue mobility protocols to prevent pressure ulcers - PT/OT as tolerated - Wound care per RN/WCT - continue accuchecks with glycemic control per SSI for target blood glucose < 180 mg/dL - home oxygen evaluation at discharge - GI & VTE prophylaxis - Flu & pneumovax per protocol - prn analgesia per pain score - continue other care per attending / other consultants - discharge planning ongoing concurrently ... re-evaluate in am & prn Subjective Date of service: 11/05/21 Principal diagnosis: Status Epilepticus / Seizure Disorder; UTI; Cerebral Palsy; PEG status Interval history: Patient is seen today for: Status Epilepticus/Seizure Disorder; UTI; Cerebral Pa lsy; Oropharyngeal dysphagia; DM II Seen and examined at bedside; 24hour events reviewed; nursing and respiratory care staff consulted; no adverse overnight events reported to me; resting in bed; doing better; no more seizure activity; afebrile Objective Vital Signs - 12hr 11/04/21 11/04/21 11/05/21 23:40 23:41 00:00 Temperature 99.3 F Pulse Rate 108 H 113 H Pulse Rate [ From Monitor] Respiratory 12 Rate Blood Pressure 129/95 O2 Sat by Pulse 99 97 Oximetry 11/05/21 11/05/21 11/05/21 01:00 02:00 03:00 Temperature Pulse Rate 97 H 102 H 98 H Pulse Rate [ From Monitor] Respiratory 19 18 14 Rate Blood Pressure 132/96 130/101 130/99 O2 Sat by Pulse 98 99 99 Oximetry 11/05/21 11/05/21 11/05/21 04:00 05:00 06:00 Temperature 99.7 F H Pulse Rate 100 H 103 H 97 H Pulse Rate [ From Monitor] Respiratory 14 14 16 Rate Blood Pressure 124/91 124/91 127/92 O2 Sat by Pulse 98 97 100 Oximetry 11/05/21 11/05/21 11/05/21 07:00 08:00 09:00 Temperature 98.4 F Pulse Rate 105 H 104 H 108 H Pulse Rate [ 104 H From Monitor] Respiratory 17 19 17 Rate Blood Pressure 137/96 142/94 124/92 O2 Sat by Pulse 100 100 99 Oximetry 11/05/21 11/05/21 10:00 11:00 Temperature Pulse Rate 101 H 106 H Pulse Rate [ From Monitor] Respiratory 13 17 Rate Blood Pressure 116/89 116/89 O2 Sat by Pulse 98 100 Oximetry Constitutional: no acute distress Eyes: non-icteric ENT: oropharynx moist Neck: supple, no lymphadenopathy, no JVD Effort: normal Ascultation: Bilateral: clear Percussion: Bilateral: not dull Cardiovascular: regular rate and rhythm Gastrointestinal: normoactive bowel sounds, soft, non-tender, non-distended Integumentary: normal Extremities: no cyanosis, no edema, pulses normal, no ischemia or petechiae Neurologic: pupils equal and round, unable to assess, other (pedal contractures) Psychiatric: other (flat affect) CBC and BMP: 11/05/21 04:05 11/05/21 04:05 Abnormal lab findings: Abnormal Labs 11/03/21 11/03/21 11/03/21 04:09 04:09 08:04 WBC Hct MCH 27 L RDW [place] % (Auto) 13.5 H [place] # (Auto) 1.1 H Potassium 3.3 L Chloride Carbon Dioxide Creatinine 0.5 L POC Glucose Total Creatine Kinase 152 H Urine WBC (Auto) 11/03/21 11/03/21 11/03/21 10:25 13:03 13:03 WBC 11.3 H Hct 43.3 H MCH 27 L RDW 15.5 H [place] % (Auto) 9.4 H [place] # (Auto) 1.1 H Potassium Chloride Carbon Dioxide Creatinine 0.4 L POC Glucose Total Creatine Kinase Urine WBC (Auto) 25.0 H 11/04/21 11/04/21 11/04/21 04:22 04:22 13:02 WBC Hct MCH 27 L RDW [place] % (Auto) 11.2 H [place] # (Auto) 0.9 H Potassium Chloride Carbon Dioxide Creatinine 0.4 L POC Glucose 108 H Total Creatine Kinase Urine WBC (Auto) 11/05/21 04:05 WBC Hct MCH RDW [place] % (Auto) [place] # (Auto) Potassium Chloride 108.4 H Carbon Dioxide 21 L Creatinine 0.4 L POC Glucose Total Creatine Kinase Urine WBC (Auto) Allied health notes reviewed: nursing
--- NOTE | 2021-11-05 12:56 | Discharge Summary ---
<CARL STEPHENSON - Last Filed: 11/05/21 18:19> Providers - Providers Date of Admission: 11/03/21 13:04 Date of discharge: 11/05/21 Attending physician: MEGAN ALVAREZ MD 11/03/21 13:04 Consult to Dietitian/Nutrition [CONS] Routine Physician Instructions: Reason For Exam: Reason for Consult: Write/Manage Tube Feeding Consult to Physician [CONS] Routine Comment: Consulting Provider: SAMREEN PAZ Physician Instructions: Reason For Exam: sz d/o 11/03/21 18:34 Consult to Physician [CONS] Routine Comment: Consulting Provider: CARLOZ FOUNTAIN Physician Instructions: Reason For Exam: critical care 11/04/21 08:29 Midline [Consult to PICC Line RN] [CONS] Urgent Reason For Exam: hard stick Type Line:: Midline Primary care physician: MATHEMATICS EDUCATION PROFESSOR Hospitalization Reason for admission: Seizure Disorder Condition: Stable Hospital course: This is a 36-year-old female with known past medical history of DM, seizure disorder, and cerebral palsy who at baseline is a functional quadriplegic and nonverbal admitted for seizures Hospital Course to Date: 11/03/2021. Patient will be admitted to [facility] for closer monitoring. Patient has received Keppra IV and IV Dilantin without relief at this time. I consulted teleneurology with Dr. Balderas who recommended adding Vimpat. We will continue with Ativan for breakthrough seizures. Patient's baseline is functional quadriplegic and nonverbal. However, additionally she may have concomitant post ictal state as well. Consult neurology with Dr. Paz. If seizures do not mary, patient may need to be transferred to tertiary facility for continuous EEG monitoring. We will order spot EEG for now. Continue seizure precautions. No infectious etiology at present. Urinalysis negative and chest x-ray negative. I do not suspect noncompliance given that the patient is a resident of a shelter and I do believe she is getting medications properly. Home medication is Keppra 1000 mg in the morning and 500 mg in the evening. Continue TF for nutrition, consult dietitian. 11/04: Multiple seizures like activities overnight treated with IV Ativan, none reported this am. EEG pending. Neurology recommendations noted, continue current AED per Neuro and PRN Ativan for seizure like activities. Patient remains afebrile, VSS. Received X1 dose of IV rocephin for UTI, urine culture pending. D/W CCM if seizures persist possible transfer to a tertiary facility for continuous EEG, will continue to monitor. 11/05: No seizure activities for 24hrs. Patient remains hemodynamicaly stable. Patient is stable for discharge back to shelter. Case management to arrange transfer. Assessment and Plan #Status Epilepticus/Seizure Disorder - Presented with multiple seizures approximately 15 minutes apart with each seizure lasting approximately 2 minutes - Received Keppra load and Dilantin in the ED - CT head with no acute intracranial abnormality - Neurology consulted, appreciate recommendations - Continue AED- Keppra and Vimpat per Neuro - EEG pending - PRN Ativan for seizures like-activities - Aspiration precaution - Seizure precaution - CCM is also following #Urinary Tract Infection(UTI) - UA with mild elevated WBCs - X1 dose of IV Rocephin administered in the ED - Patient remains afebrile, with no leukocytosis, VSS - Urine culture pending - Continue to F/u on culture result - Trend CBC #Cerebral Palsy #Functional Quadriplegic - Chronic. Nonverbal at baseline - Continue supportive measures - Home meds resumed #Oropharyngeal dysphagia #PEG-Tube Present - Nutrition consult - Enteral nutrition initiated #Type 2 Diabetes Mellitus - currently stable - BG check Q6hrs - Initiate SSI if hyperglycemic - Avoid Hypoglycemia #GI/DVT Prophylaxis - PPI- Pepcid - Lovenix SubQ - SCDs to bilateral lower extremities while in bed Disposition: 03 [facility] F[facility] Final Discharge Diagnosis (Prints w/discharge instructions): Seizure Disorder Time spent for discharge: 35 Core Measure Documentation - Palliative Care Palliative Care/ Comfort Measures: Not Applicable - Core Measures Any of the following diagnoses?: none Exam - Physical Exam Narrative exam: General appearance: Present: no acute distress, well-nourished, obese - EENT Eyes: Present: PERRL - Respiratory Respiratory effort: normal Respiratory: bilateral: diminished - Cardiovascular Rhythm: regular Heart Sounds: Present: S1 & S2 - Extremities Extremities: no ischemia, pulses intact, pulses symmetrical Extremity abnormal: edema - Peripheral Assessment Generalized Edema Type: Non-pitting Edema Degree: 1+ Capillary Refill: < 3 seconds Skin Temperature: Warm Peripheral Pulses: within normal limits - Abdominal General gastrointestinal: soft, non-distended, normal bowel sounds, other (PEG- Tube Present) - Integumentary Integumentary: Present: clear, warm, dry - Psychiatric Psychiatric: other (awake but nonverbal and unresponsive) - Neurologic Neurologic: moves all extremities (Non-purposeful ), other (awake but nonverbal and unresponsive) - Allied Health Allied health notes reviewed: nursing, case management - Constitutional Vitals: Temp Pulse Resp BP Pulse Ox 98.4 F 106 H 17 116/89 100 11/05/21 08:00 11/05/21 11:00 11/05/21 11:00 11/05/21 11:00 11/05/21 11:00 Plan Activity: other (Per facility) Diet: other (TF) Wound: open to air Care Plan Goals: - Follow up with Neurologist oupatient for further management for seizure disorder - Keep patient hydrated- Continue enteral nutrition and free water flushes Follow up with: PRIMARY CAREMD [Primary Care Provider] - 3-5 Days <MEGAN ALVAREZ - Last Filed: 11/06/21 07:50> Providers - Providers Date of Admission: 11/03/21 13:04 Attending physician: MEGAN ALVAREZ MD 11/03/21 13:04 Consult to Dietitian/Nutrition [CONS] Routine Physician Instructions: Reason For Exam: Reason for Consult: Write/Manage Tube Feeding Consult to Physician [CONS] Routine Comment: Consulting Provider: SAMREEN PAZ Physician Instructions: Reason For Exam: sz d/o 11/03/21 18:34 Consult to Physician [CONS] Routine Comment: Consulting Provider: CARLOZ FOUNTAIN Physician Instructions: Reason For Exam: critical care 11/04/21 08:29 Midline [Consult to PICC Line RN] [CONS] Urgent Reason For Exam: hard stick Type Line:: Midline Primary care physician: MATHEMATICS EDUCATION PROFESSOR Hospitalization Hospital course: I saw and evaluated the patient. I agree with the findings and the plan of care as documented in the Nurse Practitioner's~note, with the following corrections and additions. Exam - Constitutional Vitals: Temp Pulse Resp BP Pulse Ox 99.2 F 102 H 21 130/91 97 11/05/21 12:00 11/05/21 15:00 11/05/21 15:00 11/05/21 15:00 11/05/21 15:00
[2021-11-05 15:10] VITALS: BP 130/91
--- NOTE | 2021-11-05 18:24 | Electrocardiograph Report ---
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
[2021-11-05] MEDS ORDERED: SENNOSIDES ORAL LIQD 8.8 MG/5 ML ORAL LIQD PO SCH (22:00)
== END 2021-11-05 15:30 | DRG 100 ==
LOC: ED 02:38 → CC1 13:04
PROVIDERS: ADMIT Hospitalist; ATTEND Internal Medicine
DX: G40.901 Epilepsy, unspecified, not intractable, with status epilepticus (principal); R53.2 Functional quadriplegia; E11.9 Type 2 diabetes mellitus without complications; G80.9 Cerebral palsy, unspecified; F32.A Depression, unspecified; E87.6 Hypokalemia; R13.12 Dysphagia, oropharyngeal phase; N39.0 Urinary tract infection, site not specified
CPT/HCPCS: 36415; 70450; 71045; 80048; 81001; 82550; 82962; 83735; 84145; 84703; 85025; 85027; 87086; 93005; 95819; G0378; J3490; C9254; J0696; J1165; J1650; J2060; J2250; J7030; J7050